=== PATIENT | male | born 1945 | race Caucasian/White ===

== ENCOUNTER → 2017-08-18 13:53 | Outpatient (CLI) | payer MEDICARE, OTHER, SELFPAY ==
[2017-08-18 14:52] LABS: Alanine Aminotransferase 43 IU/L (21-72); Albumin 4.3 g/dL (3.5-5.0); Albumin Globulin Ratio 1.3 (1.0-2.8); Alkaline Phosphatase 61 U/L (38-126); Aspartate Aminotransferase 33 IU/L (17-59); Bilirubin Total 1.1 mg/dL (0.2-1.3); Bilirubin Unconjugated 0.9 mg/dL (0.0-1.1); Cholesterol 105 mg/dL (140-199); Globulin 3.2 g/dL (1.7-4.1); HDL Cholesterol 27 mg/dL (40-60); HEMOLYSIS 24 (0-50); LDL Cholesterol Calculated 60 mg/dL (<100); Total Protein 7.5 g/dL (6.3-8.2); Triglycerides 90 mg/dL (35-150)
== END ==
PROVIDERS: PCP Physician Assistant; Visit Provider Internal Medicine
DX: E78.00 Pure hypercholesterolemia, unspecified (principal)
CPT/HCPCS: 36415; 80061; 80076

== ENCOUNTER → 2017-11-27 15:42 | Outpatient (CLI) | payer MEDICARE, OTHER, SELFPAY ==
[2017-08-26 16:00] VITALS: BMI 29.0; BMI 39.4
[2017-11-27 18:11] LABS: Alanine Aminotransferase 41 IU/L (21-72); Albumin 4.5 g/dL (3.5-5.0); Albumin Globulin Ratio 1.4 (1.0-2.8); Alkaline Phosphatase 72 U/L (38-126); Aspartate Aminotransferase 33 IU/L (17-59); BUN Creatinine Ratio 21.3 (6-22); Bilirubin Total 0.7 mg/dL (0.2-1.3); Blood Urea Nitrogen 17 mg/dL (9-20); Calcium 9.5 mg/dL (8.4-10.2); Carbon Dioxide 36 mmol/L (22-32); Chloride 99 mmol/L (98-107); Estimated Glomerular Filt Rate > 60.0 mL/min (>60); Globulin 3.3 g/dL (1.7-4.1); Glucose 92 mg/dL (80-110); HEMOLYSIS 19 (0-50); Sodium 145 mmol/L (137-145); Total Protein 7.8 g/dL (6.3-8.2)
== END ==
PROVIDERS: PCP Physician Assistant; Visit Provider Internal Medicine Cardiovascular Disease
DX: I25.10 Atherosclerotic heart disease of native coronary artery without angina pectoris (principal)
CPT/HCPCS: 36415; 80053

== ENCOUNTER → 2017-12-08 10:52 | Outpatient (CLI) | payer MEDICARE, OTHER, SELFPAY ==
[2017-08-26 16:00] VITALS: BMI 29.0; BMI 39.4
--- NOTE | 2017-12-08 | DI.CT.S_ITS ---
PROCEDURE: CT ANGIO CHEST INDICATIONS: PAROXYSMAL ATRIAL FIBRILLATION TECHNIQUE: After the administration of intravenous contrast, 3 mm thick sections acquired from the pulmonary apices to the posterior costophrenic angles. 3-dimensional maximum intensity projection (MIP) coronal reformats were then acquired parallel to the pulmonary veins. For radiation dose reduction, the following was used: automated exposure control, adjustment of mA and/or kV according to patient size. COMPARISON: [facility], CT, ABDOMEN WITHOUT CONTRAST, 03/30/2012, 8:27. [facility], CT, THORAX WITH CONTRAST, 05/10/2011, 13:15. FINDINGS: Image quality: Excellent. Pulmonary veins: 2 right and 2 left pulmonary veins are identified. * Right superior pulmonary vein: 3.1 cm diameter, 1.1 cm from ostium to 1st order branch. * Right inferior pulmonary vein: 2.3 cm diameter, 1.0 cm from ostium to 1st order branch. * Left superior pulmonary vein: 2.3 cm diameter, 3.1 cm from ostium to 1st order branch. * Left inferior pulmonary vein: 2.0 cm diameter, 2.2 cm from ostium to 1st order branch. * Supernumerary pulmonary veins: none. Lungs and pleura: Lungs are clear. No pleural effusions or pneumothorax. Central and peripheral airways are patent. There is chronic segmental bronchial wall thickening within the left lower lobe. Left lower lobe scarring is present. Scarring within the left upper lobe posterior laterally is present. Mediastinum: Heart size is enlarged, without pericardial effusion. There is calcification of the coronary vasculature. No mediastinal or hilar adenopathy. Thoracic aorta and pulmonary arteries are normal in caliber and enhancement. Esophagus is normal in caliber, without hiatal hernia. Bones and chest wall: Left-sided pacer with transvenous cardiac leads. No suspicious bony lesions. Ribs and thoracic spine appear intact throughout. No axillary or supraclavicular adenopathy. Thyroid gland is not seen. Abdomen: Visualized portions of the upper abdomen demonstrate a peripherally calcified cyst within the anterior spleen, which is incompletely visualized. There is reflux of contrast into the hepatic venous vasculature. IMPRESSION: 1. Conventional pulmonary venous anatomy. 2. Coronary artery disease. Right heart failure. 3. Peripherally calcified splenic cyst. 4. Chronic left lower lobe bronchitis with associated scarring. Dictated by: Tyrel Ledesma M.D. on 12/08/2017 at 12:16 Approved by: Tyrel Ledesma M.D. on 12/08/2017 at 12:24
== END ==
PROVIDERS: PCP Physician Assistant; Visit Provider Internal Medicine Cardiovascular Disease
DX: I48.0 Paroxysmal atrial fibrillation (principal); I25.10 Atherosclerotic heart disease of native coronary artery without angina pectoris; D73.4 Cyst of spleen; J42 Unspecified chronic bronchitis; I50.810 Right heart failure, unspecified
CPT/HCPCS: 71275; Q9967

== ENCOUNTER 2017-12-15 11:49 | Emergency (ER) | payer MEDICARE, OTHER, SELFPAY ==
[2017-08-26 16:00] VITALS: BMI 29.0; BMI 39.4
[2017-12-15 11:55] VITALS: BP 133/84; PULSE 59; RESP 16; TEMP 36.4; O2SAT 96
[2017-12-15 12:52] VITALS: BP 139/86; BP 159/94; PULSE 60; RESP 14; O2SAT 96
--- NOTE | 2017-12-15 12:59 | DI.CT.S_ITS ---
PROCEDURE: CT ANGIO CHEST ABDOMEN PELVIS INDICATIONS: epigastric pain with known aneurysm, stent TECHNIQUE: Precontrast 5 mm thick sections acquired from the lung apices to the iliac crests. After the administration of intravenous contrast, 2.5 mm thick sections again acquired from the lung apices to the iliac crests. Maximum intensity projection (MIP) oblique sagittal and coronal reformats were then acquired. For radiation dose reduction, the following was used: automated exposure control. COMPARISON: [facility], CT, ABDOMEN WITHOUT CONTRAST, 03/30/2012, 8:27. [facility], CT, CT ANGIO CHEST, 12/08/2017, 10:53. FINDINGS: Image quality: Excellent. AORTA: . Thoracic aorta demonstrates no aneurysmal dilation, stenosis or occlusion. Infrarenal distal aortic stent extending to the common iliacs are present. Stents appear patent. CHEST: Lungs and pleura: Streaky opacities are present within the left upper lobe, unchanged.i. No pleural effusions or pneumothorax. Central and peripheral airways are patent and normal in caliber. Mediastinum: Heart size is normal. No pericardial effusion. No mediastinal or hilar adenopathy by size criteria. Central pulmonary arteries are normal in size. Esophagus is normal in caliber. Mild hiatal hernia. Bones and chest wall: No axillary adenopathy by size criteria. Thyroid gland is unremarkable. No suspicious bony lesions. No vertebral body compression fractures. ABDOMEN: Vasculature: Celiac trunk and mesenteric arteries are patent. Renal arteries are also patent. Solid organs: Liver is normal in size and enhancement. Gallbladder is unremarkable. Biliary system is non dilated. Pancreas enhances normally. Spleen calcified anterior splenic low attenuation structure is present and unchanged. No adrenal nodules. Both kidneys are normal in size and enhancement, without hydronephrosis. Bilateral renal cysts are present. Peritoneum and bowel: No free fluid or air. Bowel loops are normal in caliber and wall thickness. Nodes and vessels: No retroperitoneal or mesenteric adenopathy by size criteria. Inferior vena cava is normal in morphology. Miscellaneous: No ventral hernias. PELVIS: Genitourinary: Bladder wall thickness is normal. Miscellaneous: No inguinal hernias or adenopathy. No ventral hernias. Bones: No suspicious bony lesions. No vertebral body compression fractures. IMPRESSION: 1. No visualized aortic aneurysmal dilation, stenosis or vascular occlusion. Aorto iliac stents are noted, as above. 2. Scarring within the left upper lobe is unchanged. Dictated by: Lara Lawrence M.D. on 12/15/2017 at 14:23 Approved by: Lara Lawrence M.D. on 12/15/2017 at 14:49
--- NOTE | 2017-12-15 12:59 | DI.US.S_ITS ---
PROCEDURE: US ABDOMEN COMPLETE INDICATIONS: PAIN TECHNIQUE: Real-time scanning was performed of the abdominal and retroperitoneal organs, with image documentation. COMPARISON: None. FINDINGS: Liver: The liver measures 20.7 cm in length and demonstrates increased echogenicity. Gallbladder: The gallbladder wall measures 2.9 mm in thickness. No stones, sludge, pericholecystic fluid, or sonographic Voss sign. Biliary ducts: Intrahepatic bile ducts are non-dilated. Extrahepatic bile duct caliber measures 4 mm. Normal is 6-7 mm or less in diameter, or 10 mm or less post-cholecystectomy. Pancreas: The pancreas is nonvisualized due to patient body habitus. Spleen: Spleen is normal in size and homogeneous in echotexture. Kidneys: Kidneys are normal in size and echotexture. Right kidney measures 12.6 cm long; left kidney measures 12.2 cm long. No hydronephrosis or nephrolithiasis. No solid masses. Aorta: Visualized aorta is normal in caliber at less than 3 cm. Iliacs: Proximal common iliac arteries are normal in caliber at less than 2.5 cm. IVC: Intrahepatic inferior vena cava is patent. Miscellaneous: No free abdominal fluid. IMPRESSION: 1. Increased hepatic echogenicity suggesting hepatic steatosis although other sources of hepatocellular dysfunction cannot be excluded. 2. No cholelithiasis or findings to suggest choledocholithiasis or acute cholecystitis. Dictated by: Regina Mccormick M.D. on 12/15/2017 at 13:36 Approved by: Regina Mccormick M.D. on 12/15/2017 at 13:38
[2017-12-15 13:03] LABS: Add Manual Diff / Slide Review NO; Basophils Percent Auto 0.8 % (0-2); Eosinophils Percent Auto 2.8 % (2-4); Hematocrit 44.8 % (41-53); Hemoglobin 15.1 g/dL (13.5-17.5); Lymphocytes Percent Auto 19.4 % (25-40); Mean Corpuscular HGB Conc 33.8 % (30-36); Mean Corpuscular Hemoglobin 32.3 PG (26-34); Mean Corpuscular Volume 95.6 fL (80-100); Monocytes Percent Auto 9.1 % (3-14); Neutrophils Absolute Auto 4800 /uL (3000-5900); Neutrophils Percent Auto 67.9 % (50-75); Platelet Count 173 X10^3/uL (150-400); Red Blood Cell Count 4.68 X10^6/uL (4.5-5.9); Red Cell Distribution Width 13.9 % (11.6-14.8)
[2017-12-15 13:09] LABS: INR 1.2 (0.9-1.3); Prothrombin Time 12.7 SECONDS (10.1-12.7)
[2017-12-15 13:12] LABS: PTT Partial Thromboplastin Tim 37 SECONDS (26.4-36.2)
[2017-12-15 13:14] LABS: Alanine Aminotransferase 29 IU/L (21-72); Albumin 4.5 g/dL (3.5-5.0); Albumin Globulin Ratio 1.3 (1.0-2.8); Alkaline Phosphatase 73 U/L (38-126); Aspartate Aminotransferase 24 IU/L (17-59); BUN Creatinine Ratio 13.8 (6-22); Blood Urea Nitrogen 11 mg/dL (9-20); Calcium 9.3 mg/dL (8.4-10.2); Carbon Dioxide 36 mmol/L (22-32); Chloride 98 mmol/L (98-107); Creatine Kinase 52 U/L (55-170); Estimated Glomerular Filt Rate > 60.0 mL/min (>60); Globulin 3.6 g/dL (1.7-4.1); Glucose 102 mg/dL (80-110); HEMOLYSIS < 15 (0-50); Lipase 452 U/L (23-300); Sodium 141 mmol/L (137-145); Total Protein 8.1 g/dL (6.3-8.2)
--- NOTE | 2017-12-15 13:26 | ED_ITS ---
HPI - Chest Pain General Chief Complaint: Chest Pain Stated Complaint: abdominal pain,up into back and shoulder blades Time Seen by Provider: 12/15/17 12:58 Source: patient Mode of arrival: ambulatory Limitations: no limitations History of Present Illness HPI narrative: Patient is a 72-year-old male who presents with epigastric pain. He has a history of an abdominal aortic aneurysm which was stented 3 years ago he also has multiple stents in his heart he is due to have cardiac ablation for AFib in 2 days he is currently on Pradaxa. He now has epigastric pain a radiates down his to his pelvis and then back up sometimes he feels nauseated is no vomiting no chest pain no shortness of breath her heart palpitations. Related Data Home Medications Medication Instructions Recorded Confirmed tiotropium bromide [Spiriva with 1 puff INH QDAY #0 ea 10/17/15 12/15/17 HandiHaler] aspirin 81 mg PO QDAY #0 12/19/15 12/15/17 sotalol [Sotalol AF] 80 mg PO BID #0 12/19/15 12/15/17 albuterol sulfate [Ventolin HFA] 1 puff INHALATION PRN PRN 12/15/17 12/15/17 atorvastatin 40 mg PO QPM 12/15/17 12/15/17 budesonide-formoterol [Symbicort] 1 puff INHALATION BID 12/15/17 12/15/17 dabigatran etexilate [Pradaxa] 1 cap PO BID 12/15/17 12/15/17 furosemide 40 mg PO DAILY 12/15/17 12/15/17 levothyroxine 1 tab PO DAILY 12/15/17 12/15/17 metoprolol tartrate 25 mg PO BID 12/15/17 12/15/17 montelukast 10 mg PO DAILY 12/15/17 12/15/17 omeprazole 20 mg PO QPM 12/15/17 12/15/17 Allergies Allergy/AdvReac Type Severity Reaction Status Date / Time hydromorphone [From DILAUDID] AdvReac Mild PROJECTILE Verified 12/15/17 14:30 VOMITING Review of Systems Review of Systems All systems reviewed & are unremarkable except as noted in HPI and below Constitutional Denies chills, Denies fever(s), Denies lethargy and Denies weakness Eyes Denies change in vision, Denies eye discharge, Denies irritation and Denies loss of vision Cardiovascular Reports as per HPI, Denies dyspnea and Denies dyspnea on exertion Respiratory Denies cough, Denies dyspnea, Denies dyspnea on exertion and Denies wheezing Gastrointestinal Gastrointestinal: Reports abdominal pain, Reports belching, Denies diarrhea, Denies nausea and Denies vomiting Musculoskeletal Denies back pain, Denies muscle weakness, Denies numbness and Denies tingling Integumentary/Breasts Denies pruritus, Denies erythema, Denies rash and Denies wounds Neurologic Denies loss of vision, Denies numbness, Denies tingling and Denies weakness Allergic/Immunologic Denies wheezing PFSH Medical History AAA (abdominal aortic aneurysm) without rupture (Acute) Atrial fibrillation (Acute) Coronary artery disease (Acute) Hyperlipidemia (Acute) Hypertension (Acute) Social History Smoking Status: Never smoker Tobacco: How many years used: 40 Exam Initial Vital Signs Initial Vital Signs: Vital Signs Temperature 97.6 F 12/15/17 11:55 Pulse Rate 59 L 12/15/17 11:55 Respiratory Rate 16 12/15/17 11:55 Blood Pressure 133/84 12/15/17 11:55 Pulse Oximetry 96 12/15/17 11:55 GENERAL: Alert talking elderly male no acute distress A&O x3 HEENT: Head atraumatic,EOMI, pupils reactive, face symmetric, CARDIOVASCULAR: Regular rate and rhythm without murmurs, rubs or gallops. RESPIRATORY: Breath sounds equal bilaterally, no wheezes rales or rhonchi. ABDOMEN: Soft, mild epigastric pain no guarding no rebound negative Voss sign , abdomen is soft nondistended EXTREMITIES: Normal range of motion, no clubbing or edema. Neurovascularly intact NEUROLOGICAL: Alert and oriented x4.Normal gait and speech. Cranial nerves II through XII grossly intact. SKIN: Warm, dry, no laceration, no petechiae, no rashes or lesions. Course Orders Ordered: ED Orders 12/15/17 12:59 CT angio chest abdomen pelvis Stat US abdomen complete Stat 12/15/17 13:00 Complete Blood Count AUTO DIFF Stat Comprehensive Metabolic Panel Stat Lipase Stat Partial Thromboplastin Time Stat Prothrombin Time INR Stat Troponin & CK Cardiac Panel Stat Discontinued Medications Pantoprazole Sodium (Protonix) 40 mg IV NOW ONE Stop: 12/15/17 14:18 Last Admin: 12/15/17 14:31 Dose: 40 mg Vital Signs - 8 hr 12/15/17 11:55 12/15/17 12:52 12/15/17 13:34 Temperature 97.6 F Pulse Rate 59 L 60 60 Respiratory Rate 16 14 12 Blood Pressure 133/84 Blood Pressure [Left Arm] 159/94 H Blood Pressure [Right Arm] 139/86 117/81 Pulse Oximetry 96 96 98 12/15/17 13:47 12/15/17 14:22 12/15/17 15:24 Temperature Pulse Rate 60 60 60 Respiratory Rate 14 9 L Blood Pressure Blood Pressure [Left Arm] Blood Pressure [Right Arm] 113/81 128/82 127/84 Pulse Oximetry 96 98 95 MDM - Chest Pain Lab Data Attestation: I reviewed the patient's lab results. Result diagrams: 12/15/17 13:00 12/15/17 13:00 Lab Results 12/15/17 12/15/17 12/15/17 Range/Units 13:00 13:00 13:00 WBC 7.0 (4.5-11.0) X10^3/uL RBC 4.68 (4.5-5.9) X10^6/uL Hgb 15.1 (13.5-17.5) g/dL Hct 44.8 (41-53) % MCV 95.6 (80-100) fL MCH 32.3 (26-34) PG MCHC 33.8 (30-36) % RDW 13.9 (11.6-14.8) % Plt Count 173 (150-400) X10^3/uL Neut % (Auto) 67.9 (50-75) % Lymph % (Auto) 19.4 L (25-40) % [place] % (Auto) 9.1 (3-14) % Eos % (Auto) 2.8 (2-4) % Baso % (Auto) 0.8 (0-2) % Neut # (Auto) 4800 (8821-2666) /uL PT 12.7 (10.1-12.7) SECONDS INR 1.2 (0.9-1.3) APTT 37 H (26.4-36.2) SECONDS Sodium 141 (137-145) mmol/L Potassium 4.0 (3.4-5.1) mmol/L Chloride 98 (98-107) mmol/L Carbon Dioxide 36 H (22-32) mmol/L BUN 11 (9-20) mg/dL Creatinine 0.80 (0.66-1.25) mg/dL Estimated GFR > 60.0 (>60) mL/min BUN/Creatinine Ratio 13.8 (6-22) Glucose 102 (80-110) mg/dL Calcium 9.3 (8.4-10.2) mg/dL Total Bilirubin 1.0 (0.2-1.3) mg/dL AST 24 (17-59) IU/L ALT 29 (21-72) IU/L Alkaline Phosphatase 73 (38-126) U/L Total Creatine Kinase 52 L (55-170) U/L CK-MB (CK-2) TNP CK-MB (CK-2) Rel Index TNP Troponin I < 0.012 (0.01-0.034) ng/mL Total Protein 8.1 (6.3-8.2) g/dL Albumin 4.5 (3.5-5.0) g/dL Globulin 3.6 (1.7-4.1) g/dL Albumin/Globulin Ratio 1.3 (1.0-2.8) Lipase 452 H (23-300) U/L Urine Dip Bedside Urine Glucose Negative Bedside Urine Bilirubin - Negative Bedside Urine Ketone - Negative Urine Specific [place] 1.010 Bedside Urine Occult Blood - Negative Bedside Urine pH 8.0 Bedside Urine Protein - Negative Bedside Urine Urobilinogen - Negative Bedside Urine Nitrite - Negative Bedside Urine Leukocytes - Negative Esterase Imaging Data US - abdomen: Radiologist's impression: PROCEDURE: US ABDOMEN COMPLETE INDICATIONS: PAIN TECHNIQUE: Real-time scanning was performed of the abdominal and retroperitoneal organs, with image documentation. COMPARISON: None. FINDINGS: Liver: The liver measures 20.7 cm in length and demonstrates increased echogenicity. Gallbladder: The gallbladder wall measures 2.9 mm in thickness. No stones, sludge, pericholecystic fluid, or sonographic Voss sign. Biliary ducts: Intrahepatic bile ducts are non-dilated. Extrahepatic bile duct caliber measures 4 mm. Normal is 6-7 mm or less in diameter, or 10 mm or less post-cholecystectomy. Pancreas: The pancreas is nonvisualized due to patient body habitus. Spleen: Spleen is normal in size and homogeneous in echotexture. Kidneys: Kidneys are normal in size and echotexture. Right kidney measures 12.6 cm long; left kidney measures 12.2 cm long. No hydronephrosis or nephrolithiasis. No solid masses. Aorta: Visualized aorta is normal in caliber at less than 3 cm. Iliacs: Proximal common iliac arteries are normal in caliber at less than 2.5 cm. IVC: Intrahepatic inferior vena cava is patent. Miscellaneous: No free abdominal fluid. IMPRESSION: 1. Increased hepatic echogenicity suggesting hepatic steatosis although other sources of hepatocellular dysfunction cannot be excluded. 2. No cholelithiasis or findings to suggest choledocholithiasis or acute cholecystitis. Dictated by: Regina Mccormick M.D. on 12/15/2017 at 13:36 CT angio chest abdomen pelvis: Radiologist's impression: PROCEDURE: CT ANGIO CHEST ABDOMEN PELVIS INDICATIONS: epigastric pain with known aneurysm, stent TECHNIQUE: Precontrast 5 mm thick sections acquired from the lung apices to the iliac crests. After the administration of intravenous contrast, 2.5 mm thick sections again acquired from the lung apices to the iliac crests. Maximum intensity projection (MIP) oblique sagittal and coronal reformats were then acquired. For radiation dose reduction, the following was used: automated exposure control. COMPARISON: [facility], CT, ABDOMEN WITHOUT CONTRAST, 03/30/2012, 8:27. [facility], CT, CT ANGIO CHEST, 12/08/2017, 10:53. FINDINGS: Image quality: Excellent. AORTA: . Thoracic aorta demonstrates no aneurysmal dilation, stenosis or occlusion. Infrarenal distal aortic stent extending to the common iliacs are present. Stents appear patent. CHEST: Lungs and pleura: Streaky opacities are present within the left upper lobe, unchanged.i. No pleural effusions or pneumothorax. Central and peripheral airways are patent and normal in caliber. Mediastinum: Heart size is normal. No pericardial effusion. No mediastinal or hilar adenopathy by size criteria. Central pulmonary arteries are normal in size. Esophagus is normal in caliber. Mild hiatal hernia. Bones and chest wall: No axillary adenopathy by size criteria. Thyroid gland is unremarkable. No suspicious bony lesions. No vertebral body compression fractures. ABDOMEN: Vasculature: Celiac trunk and mesenteric arteries are patent. Renal arteries are also patent. Solid organs: Liver is normal in size and enhancement. Gallbladder is unremarkable. Biliary system is non dilated. Pancreas enhances normally. Spleen calcified anterior splenic low attenuation structure is present and unchanged. No adrenal nodules. Both kidneys are normal in size and enhancement, without hydronephrosis. Bilateral renal cysts are present. Peritoneum and bowel: No free fluid or air. Bowel loops are normal in caliber and wall thickness. Nodes and vessels: No retroperitoneal or mesenteric adenopathy by size criteria. Inferior vena cava is normal in morphology. Miscellaneous: No ventral hernias. PELVIS: Genitourinary: Bladder wall thickness is normal. Miscellaneous: No inguinal hernias or adenopathy. No ventral hernias. Bones: No suspicious bony lesions. No vertebral body compression fractures. IMPRESSION: 1. No visualized aortic aneurysmal dilation, stenosis or vascular occlusion. Aorto iliac stents are noted, as above. 2. Scarring within the left upper lobe is unchanged. Dictated by: Lara Lawrence M.D. on 12/15/2017 at 14:23 Approved by: Lara Lawrence M.D. on 12/15/2017 at 14:49 [facility] Narrative Medical decision making narrative: Patient overall is feeling better. Ultrasound and CT are within normal limits. He does have a slight elevation in lipase of 452, this may be contributing to his pain and discomfort. He is able tolerate oral fluids. He is given a dose of Protonix as well for chronic kind of gastritis. He takes Protonix 20 mg at night. At this time patient is feeling ready and able to go home. Discharge Plan Departure Patient Disposition: Home Clinical Impression: Abdominal pain Discharge Date/Time: 12/15/17 15:36 Interventions: ED Discharge Assessment Last Done: 12/15/17 15:35 Instructions: DI for Abdominal Pain-Adult Activity Restrictions/Additional Instructions: *You have been diagnosed with abdominal pain *What to do: Blood work does show slightly elevated lipase of 452. This may be contributing to some of her pain and discomfort as though it is not concerning at this time. He had an ultrasound of her gallbladder which was negative and a CT scan of you're aorto which is also negative. Recommend drinking of fluids and water and avoiding alcohol *Continue to take medications as directed Omeprazole 40 mg in the evening before bed on an empty stomach *Follow up with your primary care provider in 2-3 days *Return to ER if you should have increased pain persistent vomiting chest pain lightheadedness passing out or any new, worsening or concerning symptoms Prescriptions: No Action tiotropium bromide [Spiriva with HandiHaler] 18 MCG capsule, w/inhalation device 1 puff INH QDAY Qty: 0 RF: 0 aspirin 81 MG tablet,delayed release (DR/EC) 81 mg PO QDAY Qty: 0 RF: 0 sotalol [Sotalol AF] 80 MG tablet 80 mg PO BID Qty: 0 RF: 0 atorvastatin 40 mg tablet 40 mg PO QPM RF: 0 levothyroxine 175 mcg tablet 1 tab PO DAILY RF: 0 furosemide 80 mg tablet 40 mg PO DAILY RF: 0 albuterol sulfate [Ventolin HFA] 90 mcg/actuation HFA aerosol inhaler 1 puff Inhalation PRN PRN (Reason: Shortness Of Breath) RF: 0 dabigatran etexilate [Pradaxa] 150 mg capsule 1 cap PO BID RF: 0 omeprazole 20 mg Capsule,Delayed Release(Dr/Ec) 20 mg PO QPM RF: 0 montelukast 10 mg tablet 10 mg PO DAILY RF: 0 metoprolol tartrate 25 mg Tablet 25 mg PO BID RF: 0 budesonide-formoterol [Symbicort] 160-4.5 mcg/actuation HFA aerosol inhaler 1 puff Inhalation BID RF: 0 Referrals: Bill Lopez MD [Non-Staff] - Trish Hall MD [Physician] - Carmen Frazier PA-C [Primary Care Provider] -
[2017-12-15 13:34] VITALS: BP 117/81; PULSE 60; RESP 12; O2SAT 98
[2017-12-15 13:36] LABS: Troponin I < 0.012 ng/mL (0.01-0.034)
[2017-12-15 13:47] VITALS: BP 113/81; PULSE 60; RESP 14; O2SAT 96
[2017-12-15 14:22] VITALS: BP 128/82; PULSE 60; RESP 9; O2SAT 98
[2017-12-15] MEDS: PANTOPRAZOLE 40 MG VIAL IV (14:31)
[2017-12-15 15:24] VITALS: BP 127/84; PULSE 60; O2SAT 95
--- NOTE | 2017-12-18 17:05 | PC.NURSE ---
follow up call, pt feeling much better, no questions, no improvement needed. pt very pleased with service
== END 2017-12-15 15:36 | disposition home or self-care (01) ==
PROVIDERS: Emergency Provider Emergency Medicine; PCP Physician Assistant
DX: R10.9 Unspecified abdominal pain (principal)
CPT/HCPCS: 36591; 71275; 74174; 76700; 80053; 81003; 82550; 83690; 84484; 85025; 85610; 85730; 93005; 96374; 99283; 99285; C9113; Q9967

== ENCOUNTER → 2018-05-07 15:07 | Outpatient (CLI) | payer MEDICARE, OTHER, SELFPAY ==
[2017-08-26 16:00] VITALS: BMI 29.0; BMI 39.4
[2018-05-07 16:24] LABS: Thyroid Stimulating Hormone 1.84 uIU/mL (0.47-4.68)
== END ==
PROVIDERS: PCP Physician Assistant; Visit Provider Physician Assistant
DX: E03.9 Hypothyroidism, unspecified (principal)
CPT/HCPCS: 36415; 84443

== ENCOUNTER → 2019-03-09 09:38 | Outpatient (CLI) | payer MEDICARE, OTHER, SELFPAY ==
[2017-08-26 16:00] VITALS: BMI 29.0; BMI 39.4
--- NOTE | 2019-03-09 | DI.RAD.S_ITS ---
PROCEDURE: XR FOOT LT MIN 3V INDICATIONS: Pain in left toe(s) TECHNIQUE: Free views of the foot were acquired. COMPARISON: None. FINDINGS: Bones: No fractures or dislocations. No suspicious bony lesions. Calcaneal spurring. Soft tissues: No tibiotalar joint effusion. Achilles tendon appears normal. IMPRESSION: No acute osseous abnormalities. If clinical symptoms persist or clinical suspicion for pathology is high, advanced imaging such as CT or MRI is suggested for further evaluation. Dictated by: Alexandra Turner M.D. on 03/09/2019 at 17:26 Approved by: Alexandra Turner M.D. on 03/09/2019 at 17:29
== END ==
PROVIDERS: PCP Physician Assistant; Visit Provider Physician Assistant
DX: M79.675 Pain in left toe(s) (principal)
CPT/HCPCS: 73630

== ENCOUNTER → 2019-11-09 14:13 | Outpatient (CLI) | payer MEDICARE, OTHER, SELFPAY ==
[2017-08-26 16:00] VITALS: BMI 29.0; BMI 39.4
[2019-11-09 16:00] LABS: BUN Creatinine Ratio 18.8 (6-22); Blood Urea Nitrogen 16 mg/dL (9-20); Calcium 9.3 mg/dL (8.4-10.2); Carbon Dioxide 38 mmol/L (22-32); Chloride 95 mmol/L (98-107); Estimated Glomerular Filt Rate > 60.0 mL/min (>60); Glucose 129 mg/dL (80-110); HEMOLYSIS < 15 (0-50); Potassium 3.7 mmol/L (3.4-5.1); Sodium 141 mmol/L (137-145)
[2019-11-09 16:29] LABS: TSH w/ Reflex to FT4 1.66 uIU/mL (0.47-4.68)
== END ==
PROVIDERS: PCP Physician Assistant; Referring Provider Internal Medicine; Visit Provider Internal Medicine
DX: I48.0 Paroxysmal atrial fibrillation (principal)
CPT/HCPCS: 36415; 80048; 83735; 84443

== ENCOUNTER → 2020-08-08 11:37 | Outpatient (CLI) | payer MEDICARE, OTHER, SELFPAY ==
[2017-08-26 16:00] VITALS: BMI 29.0; BMI 39.4
[2020-08-08 12:13] LABS: COVID19 -Nasal RAPID Negative (Negative)
== END ==
PROVIDERS: PCP Physician Assistant; Visit Provider Family Medicine Sleep Medicine
DX: Z20.822 Contact with and (suspected) exposure to COVID-19 (principal); G47.33 Obstructive sleep apnea (adult) (pediatric); G47.30 Sleep apnea, unspecified
CPT/HCPCS: 87635; 95810

== ENCOUNTER 2020-12-18 22:16 | Observation (INO) | payer MEDICARE, OTHER, SELFPAY ==
[2017-08-26 16:00] VITALS: BMI 29.0; BMI 39.4
--- NOTE | 2020-12-18 22:17 | ED.BACK ---
HPI - Back Pain/Injury General Chief Complaint: Back Pain/Injury Stated Complaint: Back Pain Time Seen by Provider: 12/18/20 22:17 History of Present Illness HPI Narrative: 75-year-old male nonsmoker with history of hypertension and hyperlipidemia is on Pradaxa and presents by EMS for evaluation of severe lower back pain and spasming that started in the absence of any traumatic injury earlier in the day. He states that it seemed to be set off by him bending over and picking up a heavy object in which he felt pulling in his back and has some occasion that radiates to the right a bit. He denies, however any radiation to his hips or lower extremities. He denies any numbness, tingling or weakness. He denies any loss of control of bowel or bladder. He denies any longstanding history of back issues. He was given Versed 2 mg EN route which helped briefly but it started wearing off soon after his arrival Related Data Home Medications Medication Instructions Recorded Confirmed tiotropium bromide 18 mcg capsule 1 puff INH QDAY #0 ea 10/17/15 12/19/20 with inhalation device (Spiriva with HandiHaler) aspirin 81 mg tablet,delayed 81 mg PO QDAY #0 12/19/15 12/19/20 release albuterol sulfate 90 mcg/actuation 1 puff INHALATION PRN PRN 12/15/17 12/19/20 aerosol inhaler atorvastatin 40 mg tablet 40 mg PO QPM 12/15/17 12/19/20 levothyroxine 175 mcg tablet 1 tab PO DAILY 12/15/17 12/19/20 montelukast 10 mg tablet 10 mg PO DAILY 12/15/17 12/19/20 budesonide-formoterol HFA 160 2 puff INHALATION BID 06/21/20 12/19/20 mcg-4.5 mcg/actuation aerosol inhaler (Symbicort) dabigatran etexilate 150 mg 150 mg PO BID 06/21/20 12/19/20 capsule (Pradaxa) dofetilide 250 mcg capsule 250 mcg PO BID cap 06/21/20 12/19/20 furosemide 80 mg tablet 80 mg PO DAILY tab 06/21/20 12/19/20 lisinopril 5 mg tablet 5 mg PO DAILY 06/21/20 12/19/20 metoprolol tartrate 25 mg tablet 50 mg PO BID tab 06/21/20 12/19/20 Previous Rx's Medication Instructions Recorded oxycodone 5 mg tablet 5 mg PO Q6HR PRN #15 tab 12/19/20 prednisone 20 mg tablet 40 mg PO DAILY #5 tab 12/19/20 Allergies Allergy/AdvReac Type Severity Reaction Status Date / Time hydromorphone [From DILAUDID] AdvReac Mild PROJECTILE Verified 06/21/20 14:09 VOMITING Review of Systems Review of Systems Narrative: GENERAL: See HPI HEENT: Denies sinus pain, ear pain, sore throat, difficulty swallowing, dizziness. RESPIRATORY: Denies dyspnea, cough, wheezing, hemoptysis, sputum. CARDIOVASCULAR: Denies chest pain, palpitations, orthopnea, edema, GASTROINTESTINAL: Denies nausea, vomiting, abdominal pain, diarrhea, constipation, melena. : Denies dysuria, frequency, incontinence, hematuria, urinary retention. MUSCULOSKELETAL: See HPI SKIN: Denies rash, skin lesions, or other NEUROLOGIC: See HP PSYCHIATRIC: No concerning psychosocial issues. 12 point review of systems is negative except for those stated above Patient History Medical History AAA (abdominal aortic aneurysm) without rupture Atrial fibrillation Coronary artery disease Hyperlipidemia Hypertension Family History Father Loud snoring Diabetes mellitus Social History household members: spouse Smoking Status: Former smoker Tobacco: How many years used: 40 alcohol intake: current Smoking Status: Never smoker Substance Use Type: does not use Exam Narrative Exam Narrative: GENERAL: [75 year old patient appears stated age. Well-developed patient, in moderate distress, obviously uncomfortable HEAD: Atraumatic. Normocephalic. EYES: Pupils equal round and reactive. Extraocular motions intact. No scleral icterus. No injection or drainage. ENT: Nose without bleeding, purulent drainage. Throat without erythema, tonsillar hypertrophy or exudate. Airway patent. NECK: Trachea midline. Non tender CARDIOVASCULAR: Regular rate and rhythm without murmurs, gallops, or rubs. RESPIRATORY: Clear to auscultation. Breath sounds equal bilaterally. No wheezes, rales, or rhonchi. GASTROINTESTINAL: Abdomen soft, non-tender, nondistended. EXTREMITIES: No edema or joint tenderness. BACK: Tenderness to palpation in the mid lumbar and right paraspinal region NEURO: AOx3. No saddle anesthesia, no loss of sensation in lower extremities, bilateral patellar reflexes 1+. Bilateral lower extremity muscle strength 5/5. SKIN: No rash or erythema of visible areas Initial Vital Signs Initial Vital Signs: Vital Signs Pulse Rate 60 12/18/20 22:19 Blood Pressure 138/72 12/18/20 22:19 Pulse Oximetry 93 12/18/20 22:19 Course Orders Ordered: Discontinued Medications Acetaminophen (Acetaminophen 325 Mg Tablet) 650 mg PO Q6HR PRN PRN Reason: Fever/Mild Pain (1-3) Last Admin: 12/19/20 17:50 Dose: 650 mg Documented by: NAYELY Albuterol (Albuterol 2.5 Mg/3 Ml Neb (Adult)) 2.5 mg INH [id number] PRN PRN Reason: Shortness Of Breath Albuterol (Albuterol 2.5 Mg/3 Ml Neb (Adult)) 2.5 mg INH Q2H PRN PRN Reason: Shortness Of Breath Albuterol/Ipratropium (Albuterol/Ipratropium 3 Ml Ampul) 3 ml INH [id number] [facility] Last Admin: 12/19/20 16:37 Dose: 3 ml Documented by: Admin: 12/19/20 13:00 Dose: 3 ml Documented by: Admin: 12/19/20 09:36 Dose: 3 ml Documented by: IFRAH Atorvastatin Calcium (Atorvastatin 20 Mg Tablet) 40 mg PO QPM [facility] Last Admin: 12/19/20 17:10 Dose: 40 mg Documented by: NAYELY Bisacodyl (Bisacodyl 10 Mg Supp) 10 mg [place] DAILY PRN PRN Reason: Constipation Budesonide (Budesonide 0.5 Mg/2 Ml Neb) 0.5 mg INH RTBID [facility] Last Admin: 12/19/20 09:36 Dose: 0.5 mg Documented by: IFRAH Dexamethasone (Dexamethasone 10 Mg/Ml Vial) 10 mg IV NOW ONE Stop: 12/19/20 00:57 Last Admin: 12/19/20 01:10 Dose: 10 mg Documented by: NAWAF Docusate Sodium (Docusate 100 Mg Capsule) 100 mg PO BID [facility] Last Admin: 12/19/20 08:57 Dose: 100 mg Documented by: JOSE Fentanyl (Fentanyl 100 Mcg/2 Ml Inj) 50 mcg IV NOW ONE Stop: 12/18/20 23:30 Last Admin: 12/18/20 23:41 Dose: 50 mcg Documented by: NAWAF Furosemide (Furosemide 40 Mg Tablet) 80 mg PO DAILY [facility] Last Admin: 12/19/20 08:56 Dose: 80 mg Documented by: JOSE Hydromorphone HCl (Hydromorphone 0.5 Mg Inj) 0.5 mg IV NOW ONE Stop: 12/18/20 23:10 Last Admin: 12/18/20 23:38 Dose: Not Given Documented by: SARINA Hydromorphone HCl (Hydromorphone 0.5 Mg Inj) 0.5 mg IV Q6H PRN PRN Reason: Pain, Moderate (4-6) Lidocaine HCl 9.9 ml/ Sodium (Chloride) 59.9 mls @ 359.4 mls/hr IV NOW ONE Stop: 12/18/20 23:30 Last Infusion: 12/18/20 23:55 Dose: 0 mls/hr Documented by: Admin: 12/18/20 23:41 Dose: 359.4 mls/hr Documented by: NAWAF Ibuprofen (Ibuprofen 600 Mg Tablet) 600 mg PO Q6HR PRN PRN Reason: Fever/Mild Pain (1-3) Last Admin: 12/19/20 12:26 Dose: 600 mg Documented by: JOSE Influenza Virus Vaccine (Influenza Hd Vaccine 0.7 Ml Syringe) 0.7 ml IM .ONCE ONE Stop: 12/19/20 09:01 Last Admin: 12/19/20 09:11 Dose: 0.7 ml Documented by: JOSE Ipratropium [place] (Ipratropium 0.5 Mg/2.5 Ml Neb) 0.5 mg INH Q2H PRN PRN Reason: Shortness Of Breath Ketorolac Tromethamine (Ketorolac 30 Mg/Ml Vial) 15 mg IV NOW ONE Stop: 12/19/20 00:57 Last Admin: 12/19/20 01:09 Dose: 15 mg Documented by: NAWAF Levothyroxine Sodium (Levothyroxine 100 Mcg Tablet) 100 mcg PO 0600 [facility] Levothyroxine Sodium (Levothyroxine 75 Mcg Tablet) 75 mcg PO 0600 [facility] Lisinopril (Lisinopril 5 Mg Tablet) 5 mg PO DAILY [facility] Last Admin: 12/19/20 08:53 Dose: 5 mg Documented by: JOSE Lorazepam (Lorazepam 2 Mg/Ml Inj) 0.5 mg IV NOW ONE Stop: 12/19/20 00:57 Last Admin: 12/19/20 03:39 Dose: 0.5 mg Documented by: NAWAF Metoprolol Tartrate (Metoprolol Ir 25 Mg Tablet) 50 mg PO BID [facility] Last Admin: 12/19/20 08:56 Dose: 50 mg Documented by: JOSE Naloxone HCl (Naloxone 0.4 Mg/Ml Vial) 0.2 mg IV Q2MIN PRN PRN Reason: Opiate Reversal Nf - Dofetilide 250 (Mcg Capsule) 250 mcg PO BID [facility] Last Admin: 12/19/20 17:12 Dose: 250 mcg Documented by: Admin: 12/19/20 08:57 Dose: Not Given Documented by: JOSE Ondansetron HCl (Ondansetron 4 Mg/2 Ml Inj) 4 mg IV NOW ONE Stop: 12/18/20 23:10 Last Admin: 12/19/20 09:46 Dose: Not Given Documented by: JOSE Oxycodone HCl (Oxycodone Ir 5 Mg Tablet) 5 mg PO Q6HR PRN PRN Reason: Pain, Moderate (4-6) Last Admin: 12/19/20 14:22 Dose: 5 mg Documented by: JOSE Prednisone (Prednisone 20 Mg Tablet) 60 mg PO DAILY [facility] Last Admin: 12/19/20 08:56 Dose: 60 mg Documented by: JOSE Sennosides (Sennosides 8.6 Mg Tablet) 17.2 mg PO BEDTIME [facility] Vital Signs Vital signs: Vital Signs - 8 hr 12/18/20 23:30 12/19/20 00:00 12/19/20 00:30 Pulse Rate 65 69 69 Respiratory Rate 10 L 11 L Pulse Oximetry 92 91 12/19/20 01:00 12/19/20 01:30 12/19/20 03:00 Pulse Rate 61 61 60 Respiratory Rate 10 L 10 L 18 Pulse Oximetry 91 91 94 MDM - Back Pain/Injury Lab Data Result diagrams: 12/18/20 23:15 10/11/21 23:15 Labs: Lab Results 12/18/20 12/18/20 12/18/20 Range/Units 23:15 23:15 23:15 WBC 8.7 (4.5-11.0) X10^3/uL RBC 4.12 L (4.5-5.9) X10^6/uL Hgb 13.5 (13.5-17.5) g/dL Hct 40.1 L (41-53) % MCV 97.2 (80-100) fL MCH 32.8 (26-34) PG MCHC 33.7 (30-36) % RDW 13.3 (11.6-14.8) % Plt Count 180 (150-400) X10^3/uL Neut % (Auto) 70.3 (50-75) % Lymph % (Auto) 18.0 L (25-40) % [place] % (Auto) 9.0 (3-14) % Eos % (Auto) 2.2 (2-4) % Baso % (Auto) 0.5 (0-2) % Neut # (Auto) 6100 (7056-0333) /uL Lymph # (Auto) 1600 (2335-0417) /uL [place] # (Auto) 800 (0-900) /uL Eos # (Auto) 200 (0-450) /uL Baso # (Auto) 0 (0-100) /uL ESR 29 H (0-15) MM/HR PT 12.9 H (10.1-12.7) SECONDS INR 1.2 (0.9-1.3) Sodium 141 (137-145) mmol/L Potassium 4.9 (3.4-5.1) mmol/L Chloride 98 (98-107) mmol/L Carbon Dioxide 38 H (22-32) mmol/L BUN 18 (9-20) mg/dL Creatinine 0.85 (0.66-1.25) mg/dL Estimated GFR > 60.0 (>60) mL/min BUN/Creatinine Ratio 21.2 (6-22) Glucose 117 H (80-110) mg/dL Calcium 9.5 (8.4-10.2) mg/dL Total Bilirubin 0.5 (0.2-1.3) mg/dL AST 30 (17-59) IU/L ALT 23 (<50) IU/L Alkaline Phosphatase 62 (38-126) U/L C-Reactive Protein 0.7 (<1.0) mg/dL Total Protein 8.0 (6.3-8.2) g/dL Albumin 4.6 (3.5-5.0) g/dL Globulin 3.4 (1.7-4.1) g/dL Albumin/Globulin Ratio 1.4 (1.0-2.8) Lipase 69 (23-300) U/L Imaging Data CT scan - abdomen/pelvis: Radiologist's Impression: [address] [address] [address] Scan Report Signed Patient: Liborio Velásquez MR#: [id number] : 1945 Acct:[id number] Age/Sex: 75 / M Date of Service: 12/18/20 Loc: ED Accession Number: [id number] ?? Procedure: CT abdomen pelvis w con Ordering Provider: Clint Fish D.O. PROCEDURE:? CT ABDOMEN PELVIS W CON ? INDICATIONS:? severe low back and right flank pain, no injury, pradaxa ? TECHNIQUE:? After the administration of intravenous contrast, axial sections acquired from the lung bases to the pubic symphysis.? Coronal and sagittal reformats were performed.? For radiation dose reduction, the following was used:? automated exposure control, adjustment of mA and/or kV according to patient size.? ? COMPARISON:? [facility], CT, ABDOMEN/PELVIS WITH CONTRAST, 06/04/2011, 13:27. ? FINDINGS: ABDOMEN:? Lung bases:? Scattered subsegmental atelectasis and/or scarring. No focal consolidation.? Airway thickening in keeping with nonspecific bronchitis and/or reactive airways disease. ? Heart:? No pericardial effusion. Normal in size.? ? Liver: Subcentimeter hepatic foci are statistically cysts or hemangiomas, although technically too small to characterize accurately and therefore nonspecific. Gallbladder:? Unremarkable. Bile ducts: Normal. Pancreas: Normal.? Spleen:? Rim calcified 3.0 cm lesion in the anterior tip of the spleen, technically nonspecific. Adrenals: Normal. Kidneys and Ureters:? Bilateral simple appearing renal cysts.? No hydronephrosis.. Stomach and duodenum: Normal. Bowel:? Normal appearance of the appendix.? No evidence of bowel obstruction.? There is a large amount of stool. Other:? No free fluid or air.? No retroperitoneal hemorrhage Abdominal nodes:? Normal. Aorta and IVC:? 4.3 cm distal aortic aneurysm, status post placement of aorta bi-iliac stent graft. Ventral wall:? Fat containing periumbilical hernia. ? PELVIS:? ? Bladder: Normal.? Inguinal region: No hernia.? Pelvic nodes: Normal.? ? Bones:? No suspicious bony lesions.? No vertebral body compression fractures.? Spondylitic changes and facet arthropathy. ? ? IMPRESSION:? Overall, no acute findings as above. ? Distal abdominal aortic aneurysm, status post placement of stent graft as above. ? Additional chronic and incidental findings as above.? Dictated by: Jony Rinaldi M.D. on 12/19/2020 at 0:31 ? ? Approved by: Jony Rinaldi M.D. on 12/19/2020 at 0:40 ? MDM Narrative Medical decision making narrative: Patient with severe right lower back pain with radiation around his right side after lifting. He has no numbness, tingling or weakness nor any other red flag suggesting the presence of a neurosurgical emergency. He has had no loss of control of bowel or bladder. He did feel some temporary relief after the paramedics gave him some Versed. He had been given multiple doses of various medications in the department and we thought we were doing a decent job. We attempted an ambulation trial in preparation for discharge in the moment he stood and put weight on the walker his pain became severe and he had to lay back down. Other diagnoses including retroperitoneal hematoma given his use of anticoagulants considered including kidney stone, as well as AAA. Images are very reassuring. Discharge Plan Departure Patient Disposition: Admitted as Observation Clinical Impression: Intractable low back pain Admit Date/Time: 12/19/20 04:59 Admit Provider: Meek Cunningham
[2020-12-18 22:19] VITALS: BP 138/72; PULSE 60; O2SAT 93
[2020-12-18 22:26] VITALS: BP 138/72; PULSE 66; RESP 18; TEMP 36.6; O2SAT 96; BMI 36.2
[2020-12-18 22:30] VITALS: PULSE 60; O2SAT 93
[2020-12-18 23:00] VITALS: PULSE 61; O2SAT 92
--- NOTE | 2020-12-18 23:12 | DI.CT.S_ITS ---
PROCEDURE: CT ABDOMEN PELVIS W CON INDICATIONS: severe low back and right flank pain, no injury, pradaxa TECHNIQUE: After the administration of intravenous contrast, axial sections acquired from the lung bases to the pubic symphysis. Coronal and sagittal reformats were performed. For radiation dose reduction, the following was used: automated exposure control, adjustment of mA and/or kV according to patient size. COMPARISON: [facility], CT, ABDOMEN/PELVIS WITH CONTRAST, 06/04/2011, 13:27. FINDINGS: ABDOMEN: Lung bases: Scattered subsegmental atelectasis and/or scarring. No focal consolidation. Airway thickening in keeping with nonspecific bronchitis and/or reactive airways disease. Heart: No pericardial effusion. Normal in size. Liver: Subcentimeter hepatic foci are statistically cysts or hemangiomas, although technically too small to characterize accurately and therefore nonspecific. Gallbladder: Unremarkable. Bile ducts: Normal. Pancreas: Normal. Spleen: Rim calcified 3.0 cm lesion in the anterior tip of the spleen, technically nonspecific. Adrenals: Normal. Kidneys and Ureters: Bilateral simple appearing renal cysts. No hydronephrosis.. Stomach and duodenum: Normal. Bowel: Normal appearance of the appendix. No evidence of bowel obstruction. There is a large amount of stool. Other: No free fluid or air. No retroperitoneal hemorrhage Abdominal nodes: Normal. Aorta and IVC: 4.3 cm distal aortic aneurysm, status post placement of aorta bi-iliac stent graft. Ventral wall: Fat containing periumbilical hernia. PELVIS: Bladder: Normal. Inguinal region: No hernia. Pelvic nodes: Normal. Bones: No suspicious bony lesions. No vertebral body compression fractures. Spondylitic changes and facet arthropathy. IMPRESSION: Overall, no acute findings as above. Distal abdominal aortic aneurysm, status post placement of stent graft as above. Additional chronic and incidental findings as above. Dictated by: Jony Rinaldi M.D. on 12/19/2020 at 0:31 Approved by: Jony Rinaldi M.D. on 12/19/2020 at 0:40
[2020-12-18 23:27] LABS: Add Manual Diff / Slide Review NO; Basophils Absolute Auto 0 /uL (0-100); Basophils Percent Auto 0.5 % (0-2); Eosinophils Absolute Auto 200 /uL (0-450); Eosinophils Percent Auto 2.2 % (2-4); Hematocrit 40.1 % (41-53); Hemoglobin 13.5 g/dL (13.5-17.5); Lymphocytes Absolute Auto 1600 /uL (1100-4500); Mean Corpuscular HGB Conc 33.7 % (30-36); Mean Corpuscular Hemoglobin 32.8 PG (26-34); Mean Corpuscular Volume 97.2 fL (80-100); Monocytes Absolute Auto 800 /uL (0-900); Neutrophils Absolute Auto 6100 /uL (1500-7000); Neutrophils Percent Auto 70.3 % (50-75); Platelet Count 180 X10^3/uL (150-400); Red Blood Cell Count 4.12 X10^6/uL (4.5-5.9); Red Cell Distribution Width 13.3 % (11.6-14.8); White Blood Cell Count 8.7 X10^3/uL (4.5-11.0)
[2020-12-18 23:30] VITALS: PULSE 65; O2SAT 92
[2020-12-18 23:32] LABS: INR 1.2 (0.9-1.3); Prothrombin Time 12.9 SECONDS (10.1-12.7)
[2020-12-18 23:39] LABS: Alanine Aminotransferase 23 IU/L (<50); Albumin 4.6 g/dL (3.5-5.0); Albumin Globulin Ratio 1.4 (1.0-2.8); Alkaline Phosphatase 62 U/L (38-126); Aspartate Aminotransferase 30 IU/L (17-59); BUN Creatinine Ratio 21.2 (6-22); Bilirubin Total 0.5 mg/dL (0.2-1.3); Blood Urea Nitrogen 18 mg/dL (9-20); C-Reactive Protein Quant 0.7 mg/dL (<1.0); Calcium 9.5 mg/dL (8.4-10.2); Carbon Dioxide 38 mmol/L (22-32); Chloride 98 mmol/L (98-107); Estimated Glomerular Filt Rate > 60.0 mL/min (>60); Globulin 3.4 g/dL (1.7-4.1); Glucose 117 mg/dL (80-110); HEMOLYSIS 30 (0-50); Lipase 69 U/L (23-300); Potassium 4.9 mmol/L (3.4-5.1); Sodium 141 mmol/L (137-145)
[2020-12-18] MEDS: fentaNYL 100 MCG/2 ML INJ 50 MCG IV (23:41)
[2020-12-18] MEDS: SODIUM CHLORIDE 0.9% IV (23:41)
[2020-12-18] MEDS: LIDOCAINE 2% IV (23:41)
[2020-12-19] VITALS (17 sets, daily range): BP systolic 118–139; BP diastolic 61–79; PULSE 60–80; RESP 10–21; TEMP 35.9–36.6; O2SAT 91–97; BMI 38.1
[2020-12-19 00:01] LABS: Erythrocyte Sedimentation Rate 29 MM/HR (0-15)
[2020-12-19] MEDS: KETOROLAC 30 MG/ML VIAL 15 MG IV (01:09)
[2020-12-19] MEDS: DEXAMETHASONE 10 MG/ML VIAL IV (01:10)
[2020-12-19] MEDS: LORazepam 2 MG/ML INJ 0.5 MG IV (03:39)
[2020-12-19 06:12] LABS: COVID19 - ADMIT (NP swab/PCR) Negative (Negative)
--- NOTE | 2020-12-19 06:47 | P.HP_ITS ---
History of Present Illness History of Present Illness Date Patient Seen: 12/19/20 Time Patient Seen: 05:30 Chief complaint: Back Pain Narrative: Mr. Velásquez is a 75M with PMH afib, CAD s/p stents, s/p PPM, AAA, HTN, HL, COPD on intermittent O2, hypothyroidism who presents with low back pain. He states that he first felt injury to his back last week when he went to bend over to tie his shoe. He noticed pain in his lower right back that radiated to his buttock. Over the next few days he started feeling better. However, tonight at dinner time he stood up from the table and had significant pain, and came to the hospital. He has had no trauma. He notes the pain is a gripping pain and is worse while walking or trying to put weight on his leg. He has no fevers/chills, no pain radiating down his leg, no weakness, no numbness of his leg, no loss of control of his bladder or bowel. No abdominal pain, nausea, vomiting. No chest pain, shortness of breath. He did have a herniated disc in his lower back in 1977 and did need a laminectomy at that time. In the ED workup was done, he was afebrile, with unremarkable vitals signs. Labs notable for WBC 8.7, Hgb 13.5, creatinine 0.85, INR 1.2. CT showed no acute findings, and a known 4.3cm AAA with stent nasima placed. He did receive steroids and pain meds, he was unable to ambulate and was admitted for further treatment. Patient History Medical History AAA (abdominal aortic aneurysm) without rupture Atrial fibrillation Coronary artery disease Hyperlipidemia Hypertension Family & Social History Family History Father Loud snoring Diabetes mellitus Safety & Behavioral: Feels Safe in Current Yes Environment Tobacco & Substance use: Smoking Status Never smoker Substance Use Type does not use Meds Home Medications and Allergies Home Medications Medication Instructions Recorded Confirmed Type tiotropium bromide 18 mcg capsule 1 puff INH QDAY #0 ea 10/17/15 12/19/20 History with inhalation device (Spiriva with HandiHaler) aspirin 81 mg tablet,delayed 81 mg PO QDAY #0 12/19/15 12/19/20 History release albuterol sulfate 90 mcg/actuation 1 puff INHALATION PRN PRN 12/15/17 12/19/20 History aerosol inhaler atorvastatin 40 mg tablet 40 mg PO QPM 12/15/17 12/19/20 History levothyroxine 175 mcg tablet 1 tab PO DAILY 12/15/17 12/19/20 History montelukast 10 mg tablet 10 mg PO DAILY 12/15/17 12/19/20 History budesonide-formoterol HFA 160 2 puff INHALATION BID 06/21/20 12/19/20 History mcg-4.5 mcg/actuation aerosol inhaler (Symbicort) dabigatran etexilate 150 mg 150 mg PO BID 06/21/20 12/19/20 History capsule (Pradaxa) dofetilide 250 mcg capsule 250 mcg PO BID cap 06/21/20 12/19/20 History furosemide 80 mg tablet 80 mg PO DAILY tab 06/21/20 12/19/20 History lisinopril 5 mg tablet 5 mg PO DAILY 06/21/20 12/19/20 History metoprolol tartrate 25 mg tablet 50 mg PO BID tab 06/21/20 12/19/20 History Allergies Allergy/AdvReac Type Severity Reaction Status Date / Time hydromorphone [From DILAUDID] AdvReac Mild PROJECTILE Verified 06/21/20 14:09 VOMITING Review of Systems Review of Systems Narrative: 14 systems reviewed and negative aside from what is noted in HPI Exam Vital Signs (past 8 hours): - 12/18/20 23:00 12/18/20 23:30 12/19/20 00:00 Temperature Pulse Rate 61 65 69 Respiratory Rate 10 L Blood Pressure Pulse Oximetry 92 92 12/19/20 00:30 12/19/20 01:00 12/19/20 01:30 Temperature Pulse Rate 69 61 61 Respiratory Rate 11 L 10 L 10 L Blood Pressure Pulse Oximetry 91 91 91 12/19/20 03:00 12/19/20 06:05 12/19/20 06:06 Temperature Pulse Rate 60 65 Respiratory Rate 18 Blood Pressure 118/61 Pulse Oximetry 94 94 93 12/19/20 06:15 Temperature 97.9 F Pulse Rate 65 Respiratory Rate 18 Blood Pressure 139/79 Pulse Oximetry 93 Oxygen Delivery Method Room Air Narrative Exam Narrative: GEN: no acute distress HEENT: PERRL, moist mucous membranes NECK: trachea midline, no JVD CV: regular rate and rhythm, no murmurs PULM: clear bilaterally, no wheezes, rhonchi, rales ABD: soft, nontender, nondistended, no organomegaly, normal bowel sounds EXT: warm and well perfused with no edema BACK: no tenderness to palpations NEURO: awake and alert and oriented, sensation intact, bilateral lower strength 5/5 SKIN: no rashes noted PSYCH: pleasant, cooperative Objective Labs Result Diagrams: 12/18/20 23:15 12/18/20 23:15 Labs: Laboratory Results - last 24 hr 12/18/20 12/18/20 12/18/20 23:15 23:15 23:15 WBC 8.7 RBC 4.12 L Hgb 13.5 Hct 40.1 L MCV 97.2 MCH 32.8 MCHC 33.7 RDW 13.3 Plt Count 180 Neut % (Auto) 70.3 Lymph % (Auto) 18.0 L [place] % (Auto) 9.0 Eos % (Auto) 2.2 Baso % (Auto) 0.5 Neut # (Auto) 6100 Lymph # (Auto) 1600 [place] # (Auto) 800 Eos # (Auto) 200 Baso # (Auto) 0 ESR 29 H PT 12.9 H INR 1.2 Sodium 141 Potassium 4.9 Chloride 98 Carbon Dioxide 38 H BUN 18 Creatinine 0.85 Estimated GFR > 60.0 BUN/Creatinine Ratio 21.2 Glucose 117 H Calcium 9.5 Total Bilirubin 0.5 AST 30 ALT 23 Alkaline Phosphatase 62 C-Reactive Protein 0.7 Total Protein 8.0 Albumin 4.6 Globulin 3.4 Albumin/Globulin Ratio 1.4 Lipase 69 SARS-CoV-2 (PCR) 12/19/20 05:15 WBC RBC Hgb Hct MCV MCH MCHC RDW Plt Count Neut % (Auto) Lymph % (Auto) [place] % (Auto) Eos % (Auto) Baso % (Auto) Neut # (Auto) Lymph # (Auto) [place] # (Auto) Eos # (Auto) Baso # (Auto) ESR PT INR Sodium Potassium Chloride Carbon Dioxide BUN Creatinine Estimated GFR BUN/Creatinine Ratio Glucose Calcium Total Bilirubin AST ALT Alkaline Phosphatase C-Reactive Protein Total Protein Albumin Globulin Albumin/Globulin Ratio Lipase SARS-CoV-2 (PCR) Negative Assessment & Plan Assessment & Plan narrative: Mr. Velásqeuz is a 75M with PPM CAD, s/p PPM, chronic COPD intermittently uses O2 who presents with low back pain. 1. Acute dorsalgia with probable lumbar radiculopathy -probable pain from lumbar radiculopathy -continue pain meds and steroid burst pred 60mg for 5-7 days -ambulate as able -PT consulted -MRI unable due to PPM -consider outpatient referral to ortho 2. Chronic COPD with chronic hypoxemic respiratory failure -continue PRN O2 for sat goal >88% -no acute exacerbation currently 3. CAD s/p stents with AAA s/p stent s/p PPM -asymptomatic currently -continue home medications, aspirin, dabigatran, statin 4. HTN -continue lisinopril, metoprolol 5. HL -continue statin 6. Hypothyroidism -continue synthroid CODE: DNR Proxy: Dinorah Velásquez, spouse DVT ppx: SCDs I have utilized all available immediate resources to obtain, update, or review the patient's current medications. Time Spent With Patient Critical Care time: I spent a total of [] minutes of critical care time on this patient's care today; this time is exclusive of procedural time. Quality MIPS - Admit I confirm the patient?s Advance Care Plan is present, Code status is documented, Surrogate decision maker is in patient?s record [If Yes, STOP here]: Yes
[2020-12-19] MEDS: lisinopriL 5 MG TABLET PO (08:53)
[2020-12-19] MEDS: METOPROLOL IR 25 MG TABLET 50 MG PO (08:56)
[2020-12-19] MEDS: FUROSEMIDE 40 MG TABLET 80 MG PO (08:56)
[2020-12-19] MEDS: predniSONE 20 MG TABLET 60 MG PO (08:56)
[2020-12-19] MEDS: DOCUSATE 100 MG CAPSULE PO (08:57)
[2020-12-19] MEDS: INFLUENZA HD VACCINE 0.7 ML SYRINGE IM (09:11)
[2020-12-19] MEDS: ALBUTEROL/IPRATROPIUM 3 ML AMPUL INH ×3 (09:36→16:37)
[2020-12-19] MEDS: BUDESONIDE 0.5 MG/2 ML NEB INH (09:36)
--- NOTE | 2020-12-19 11:05 | PT.IIE ---
Medical History (Last Reviewed 12/19/20 @ 06:47 by Meek Cunningham MD) AAA (abdominal aortic aneurysm) without rupture Atrial fibrillation Coronary artery disease Hyperlipidemia Hypertension Physical Therapy Inpatient Evaluation/Re-Eval M1 PT/OT-IP Prior Functional Status Start: 12/19/20 13:10 Freq: NEEDED Status: Active Protocol: Document 12/19/20 11:05 AB (Rec: 12/19/20 13:49 AB [email or web address]) Medical Review Prior Functional Status Medical History Reviewed Yes Communication able to make needs known Mobility and Gait pt stated that he is independent with all mobilities and ambulation without AD Social History Household Members spouse Living Arrangements House Number of Floors (Floors) Two Floors Number of Stairs To Enter/Railing? 2 steps to enter without AD 14 steps R rail ascending to bedroom level Home Environment High Toilet,Walk in Shower Home Equipment Four Wheel Walker,Straight Cane Additional Social History Comment spouse stated that she will not be able to assist pt if pt needs manual assist/support M2 PT-IP Current Condition Start: 12/19/20 13:33 Freq: NEEDED Status: Active Protocol: Document 12/19/20 11:05 AB (Rec: 12/19/20 13:49 AB [email or web address]) Physical Therapy Current Condition Current Condition Evaluation Date 12/19/20 Treatment Diagnosis intractable back pain; difficulty in walking Onset Date 12/19/20 Precautions Lumbar Precautions Log Roll,No Twisting,Limit Bending,Lifting Restriction of 10 lbs,Gait Belt above Incisional Area M3 PT-IP Subjective Start: 12/19/20 13:33 Freq: NEEDED Status: Active Protocol: Document 12/19/20 11:05 AB (Rec: 12/19/20 13:49 AB [email or web address]) Subjective Physical Therapy Visit Type Type Initial Evaluation Visit Start Time 11:05 Visit Stop Time 11:55 Total Visit Minutes 50 Number of PAD EXTRACTION TENDER Visits 0 Physical Therapy Visit Comments Patient Comments agreeable to do PT Therapy Pain Assessment Pain When Pain Assessed At Rest Pain Present Pain Present Pain Reported Location right lower back Intensity 1 Scale Used increases with ambulation :8 10 Pain Management Techniques Apply Cold,Distraction, Modification of Treatment,Re- positioning M4 PT-IP Mobility and Gait Start: 12/19/20 13:33 Freq: NEEDED Status: Active Protocol: Document 12/19/20 11:05 AB (Rec: 12/19/20 13:49 AB [id number]) PT-Bed Mobility Assessment Rolling Type of Rolling Log Rolling Level of Assist Standby Assistance Supine to Sit Supine to Sit Standby Assistance Sit to Supine Sit to Supine Standby Assistance PT-Transfer Assessment Sit to and From Stand Sit to and from Stand Standby Assistance,Contact Guard Assistance,1 Person Assistance,Use of Upper Extremities Equipment Transfer Assistive Device None,Gait Belt,Front Wheeled Walker Orthotic/Prosthetic Devices or Brace: No Transfers Transfer Destination Bed,Chair Transfer Technique Stand Step Pivot Transfer Ability Level of Assist Standby Assistance,Contact Guard Assistance,1 Person Assistance,Use of Upper Extremities Comments Mobility Comments pt sitting on EOB. initially stated that pain is not much on R low back. educated on back precautions. completed bed mobility log roll SBA. completed sit to stand from EOB SBA and cues and ambulated in room using FWW SBA ~ 20 ft . assessed ambulation without AD SBA to CGA ~ 10 ft with c/ o slight R sided pain but manageable per pt. pt completed sit to sidelying SBA. palpated R low back and with paraspinal muscle guarding with trigger points on L3-L5 area, MFR conducted. pt completed supine to sit SBA . ambulated in room SBA to CGA without AD ~ 15 ft but with intermittent pain on R side affecting mobility. pt sat on chair. pt stated that he hasn't had any pain meds. pt agreed to sit on chair and positioned. ice pack provided . informed nursing staff regarding pt asking for pain meds. pt agreed for PT again this afternoon to assess mobility with pain meds. Gait Assessment Gait Gait Assistance Required: Standby Assistance,Contact Guard Assist Distance (Feet) 20 Able to Maintain Weight Bearing Status Yes During Gait Assistive Devices Assistive Device None,Gait Belt,Front Wheeled Walker Orthotic/Prosthetic Devices or Brace: No Gait Deviations General Gait Pattern Antalgic,Decreased Stride Length,Wide Based Gait Factors Limiting Gait Function Factors Limiting Gait Function Decreased Activity Tolerance, Decreased Strength,Difficulty Following Directions,Limited Range of Motion,Pain,Poor Balance PT-Balance Assessment Sitting Balance and Reactions Static Sitting Balance Ability Normal Dynamic Sitting Balance Ability Good Standing Balance and Reactions Static Standing Balance Ability Good Dynamic Standing Balance Ability Fair Device Used using FWW M5 PT-IP Objective Assessments Start: 12/19/20 13:33 Freq: NEEDED Status: Active Protocol: Document 12/19/20 11:05 AB (Rec: 12/19/20 13:49 AB [id number]) Orientation Orientation/Cognition Level of Alertness Alert Orientation Name,Age,Birthday,Month,Date, Year,Day of Week,Place, Situation Language Function Ability No Deficits Noted Safety Awareness Understands Safety Issues Memory Description No Deficits Noted Gross Range of Motion Lower Extremity ROM Assessment Within Functional Limits Strength Lower Extremity Strength Assessment Within Functional Limits Coordination Assessment Gross Coordination Gross Coordination WNL Muscle Tone Muscle Tone WNL Yes M6 PT-IP Treatment Start: 12/19/20 13:33 Freq: NEEDED Status: Active Protocol: Document 12/19/20 11:05 AB (Rec: 12/19/20 13:49 AB [id number]) Physical Therapy Treatment Education Education Provided Precautions,Safety M7 PT-IP Assessment and Plan Start: 12/19/20 13:33 Freq: NEEDED Status: Active Protocol: Document 12/19/20 11:05 AB (Rec: 12/19/20 13:49 AB [email or web address]) PT Summary Assessment and Plan Potential Rehabilitation Potential Good Status of Condition at Evaluation Evolving Summary Impairments Pain,ROM,Strength,Balance, Coordination,Sensation,Tone, Cognition,Bed Mobility, Transfers,Gait,Activity Tolerance Assessment Summary pt requiring SBA to CGA with mobility but unable to tolerate much due to increase back pain. pt was only able to ambulate ~ 20 ft and needs to be more independent to safely go home. will continue to assess progress. spouse stated that she will not be able to provide physical assistance to pt. Goals Bed Mobility Goal Standby Assistance Transfer Goal Standby Assistance,Four Wheeled Walker Gait Goal Standby Assistance,Four Wheel Walker Gait Distance 200 Other Goals improve bed mobility, transfers without AD mod I, ambulation without AD 150 ft SBA up/down 2 steps without rails SBA up/down 14 steps R rail ascending SBA Days to Meet Goals 5 Frequency of Treatment Frequency Of Treatment Twice a Day Treatment Plan Physical Therapy Treatment Plan Bed Mobility Training,Transfer Training,Gait Training, Therapeutic Exercise,Balance Retraining,Discharge Planning, Hot or Cold Pack,Neuromuscular Re-ed,Coordination Retraining ,Manual Therapy Other Recommendations and Next Treatment ambulation, stair climbing Focus Precautions Lumbar Precautions Log Roll,No Twisting,Limit Bending,Lifting Restriction of 10 lbs,Gait Belt above Incisional Area Recommendations To Nursing Amount of Assist Needed 1 Person Assist Discharge Recommendations PT Discharge Recommendations Home with Assistance, Outpatient PT Transportation Needs at Discharge Private Vehicle
[2020-12-19] MEDS: IBUPROFEN 600 MG TABLET PO (12:26)
--- NOTE | 2020-12-19 12:31 | CM.DANOTE ---
Patient is a 75 yo male who was admitted on 12/19/20 for Back Pain, Intractable. Pt has [facility] and [facility] and his PCP is Iman Daniels. EMR was reviewed. Per MD, pt admitted for steroids, pain management, and PT towards determining if he is safe for d/c home. CT was normal. MRI unable to be completed due to medical condition. Per PT, pt was able to ambulate alright but had increased pain with manipulation and was unable to complete stairs at this time and will attempt again this afternoon as pt has quite a few stairs to enter his residence. Pt will need outpt f/u with ortho and outpt PT. SW met bedside with pt and explained role and he confirms he lives at home in [place] with his and is active and independent with ADL's at baseline and drives. Pt travels a fair amount with to see family in [place] and has hx of back pain off and on for many years. Pt denies any hx of HH or SNF and preference is home once pain controlled and his spouse is available for assist at d/c. Pt confirms that steroids have decreased his pain and made it more tolerable and manageable. Plan: SW to follow closely for further PT and stairs towards determining plan of home with spouse and outpt f/u with Ortho and PT and any further identified needs. MENDEL Doan Discharge Planning/Care Management CM Discharge Assessment Start: 12/19/20 12:29 Freq: Status: Active Protocol: Document 12/19/20 12:29 BF (Rec: 12/19/20 12:31 BF [id number]) Discharge Planning Assessment Assigned Wood Grainer MENDEL Martino DPOA/Assigned Designee Name navid Copeland Contact Information [phone] Advance Directives? Yes Advance Directives on File Yes History Provided By Patient,Significant Other, Medical Record Has Patient been admitted in last 30 No days? Prior Living Arrangements House Household Members spouse Type of transporation used prior to Drives own vehicle admit Independent with ADL's Yes Is patient alert and oriented? Yes Caregiver for Another No Patient/Family Preference OP PT Therapy Comment Outpt Ortho f/u Barriers to Discharge No Discharge Plan Home Community Services Physical Therapy Transportation Arrangement Spouse can provide transport at d/c Referrals Initiated None needed Additional Comment Ortho outpt f/u Whiteboard Updated in Patient Room with Yes name and ext. # of Wood Grainer Review Status In Process Please Provide Date Initial DC 12/19/20 Assessment Was Performed Next Review Type Continued Stay Review
[2020-12-19] MEDS: OXYCODONE IR 5 MG TABLET PO (14:22)
--- NOTE | 2020-12-19 14:25 | PT.IPTN ---
Physical Therapy Treatment Note M2 PT-IP Current Condition Start: 12/19/20 13:33 Freq: NEEDED Status: Active Protocol: Document 12/19/20 11:05 AB (Rec: 12/19/20 13:49 AB [id number]) Physical Therapy Current Condition Current Condition Evaluation Date 12/19/20 Treatment Diagnosis intractable back pain; difficulty in walking Onset Date 12/19/20 Precautions Lumbar Precautions Log Roll,No Twisting,Limit Bending,Lifting Restriction of 10 lbs,Gait Belt above Incisional Area M3 PT-IP Subjective Start: 12/19/20 13:33 Freq: NEEDED Status: Active Protocol: Document 12/19/20 14:25 AB (Rec: 12/19/20 15:35 AB [email or web address]) Subjective Physical Therapy Visit Type Type Treatment Note Visit Start Time 14:25 Visit Stop Time 14:55 Total Visit Minutes 30 Number of HIRED HAND Visits 0 Physical Therapy Visit Comments Patient Comments agreeable to do PT Therapy Pain Assessment Pain When Pain Assessed At Rest Pain Present Pain Present Pain Reported Location right lower back Intensity 2 Scale Used occasionally has increase pain during mobility Pain Management Techniques Apply Cold,Distraction, Modification of Treatment,Re- positioning,Timing of Activity with Medications M4 PT-IP Mobility and Gait Start: 12/19/20 13:33 Freq: NEEDED Status: Active Protocol: Document 12/19/20 14:25 AB (Rec: 12/19/20 15:35 AB [email or web address]) PT-Transfer Assessment Sit to and From Stand Sit to and from Stand Standby Assistance Equipment Transfer Assistive Device Gait Belt,4 Wheeled Walker Orthotic/Prosthetic Devices or Brace: No Comments Mobility Comments pt sitting on chair. agreed to do PT. completed sit to stand SBA and ambulated in room using 4WW SBA. occasionally increase R LBP with pt tending to tighten up. pt stated that a sudden onset of increase pain. pt agreed to ambulate in the hallway and completed ~ 150 ft using 4WW. completed up/down steps using R rail ascending SBA and also completed up/down platform step with pt touching L side of wall (pt stated that he can touch side of the house to enter the house). pt ambulated back to his room. ambulated ~ 20 ft in room without AD SBA. pt experienced more sudden onset of pain without using 4WW. pt sat on chair. positioned on chair. ice pack provided. call light and table placed within reach. educated pt on safety and use of 4WW at this time and pt agreed. Gait Assessment Gait Gait Assistance Required: Standby Assistance Distance (Feet) 150 Able to Maintain Weight Bearing Status Yes During Gait Assistive Devices Assistive Device Gait Belt,4 Wheeled Walker Orthotic/Prosthetic Devices or Brace: No Gait Deviations General Gait Pattern Antalgic,Decreased Stride Length Factors Limiting Gait Function Factors Limiting Gait Function Decreased Activity Tolerance, Decreased Strength,Limited Range of Motion,Pain,Poor Balance,Poor Safety Awareness Comments Gait Comments pls refer to mobility section for details Stair Climbing Assessment Evaluation Level of Assist On Stairs Standby Assistance Devices Stair Climbing Assistive Devices Right Railing Technique/Endurance Stair Climbing Direction Ascend and Descend Stair Climbing Technique Step to Step Number of Steps Climbed 3 Stair Climbing Set # Repetitions (reps) 2 Comments Stair Climbing Comments also completed platform step touch L wall SBA M5 PT-IP Objective Assessments Start: 12/19/20 13:33 Freq: NEEDED Status: Active Protocol: Document 12/19/20 11:05 AB (Rec: 12/19/20 13:49 AB [email or web address]) Orientation Orientation/Cognition Level of Alertness Alert Orientation Name,Age,Birthday,Month,Date, Year,Day of Week,Place, Situation Language Function Ability No Deficits Noted Safety Awareness Understands Safety Issues Memory Description No Deficits Noted Gross Range of Motion Lower Extremity ROM Assessment Within Functional Limits Strength Lower Extremity Strength Assessment Within Functional Limits Coordination Assessment Gross Coordination Gross Coordination WNL Muscle Tone Muscle Tone WNL Yes M6 PT-IP Treatment Start: 12/19/20 13:33 Freq: NEEDED Status: Active Protocol: Document 12/19/20 14:25 AB (Rec: 12/19/20 15:35 AB [email or web address]) Physical Therapy Treatment Education Education Provided Safety M7 PT-IP Assessment and Plan Start: 12/19/20 13:33 Freq: NEEDED Status: Active Protocol: Document 12/19/20 14:25 AB (Rec: 12/19/20 15:35 [email or web address]) PT Summary Assessment and Plan Potential Rehabilitation Potential Good Summary Impairments Pain,ROM,Strength,Balance, Coordination,Sensation,Bed Mobility,Transfers,Gait, Activity Tolerance Progress Towards Goals Slow Progress due to Pain Assessment Summary pt requiring SBA with mobility and continues to have intermittent pain on R low back that increases with mobility. recommending pt to use 4WW at this time and pt agreed. pt will need outpt PT . Goals Bed Mobility Goal Independent Transfer Goal Independent,Four Wheeled Walker Gait Goal Standby Assistance,Four Wheel Walker Gait Distance 200 Other Goals improve bed mobility, transfers without AD mod I, ambulation without AD 150 ft mod I up/down 2 steps without rails mod I up/down 14 steps R rail ascending mod I Days to Meet Goals 5 Frequency of Treatment Frequency Of Treatment Once a Day Treatment Plan Physical Therapy Treatment Plan Bed Mobility Training,Transfer Training,Gait Training, Therapeutic Exercise,Balance Retraining,Discharge Planning, Hot or Cold Pack,Neuromuscular Re-ed,Coordination Retraining ,Manual Therapy Other Recommendations and Next Treatment ambulation, stair climbing Focus Precautions Lumbar Precautions Log Roll,No Twisting,Limit Bending,Lifting Restriction of 10 lbs,Gait Belt above Incisional Area Recommendations To Nursing Amount of Assist Needed 1 Person Assist Discharge Recommendations PT Discharge Recommendations Home with Assistance, Outpatient PT Transportation Needs at Discharge Private Vehicle
--- NOTE | 2020-12-19 14:30 | OT.IP.EVAL ---
Past Medical History (Last Reviewed 12/19/20 @ 06:47 by Meek Cunningham MD) AAA (abdominal aortic aneurysm) without rupture Atrial fibrillation Coronary artery disease Hyperlipidemia Hypertension Occupational Therapy Inpatient Evaluation/Re-Eval M1 PT/OT-IP Prior Functional Status Start: 12/19/20 13:10 Freq: NEEDED Status: Active Protocol: Document 12/19/20 14:29 [facility] (Rec: 12/19/20 14:42 [facility] [id number]) Medical Review Prior Functional Status Medical History Reviewed Yes Communication able to make needs known Mobility and Gait pt stated that he is independent with all mobilities and ambulation without AD Activities of Daily Living and IADL's Pt states completely independent with all ADl, IADl , drives and takes care of the dog and cats at home. Social History Household Members spouse Living Arrangements House Number of Floors (Floors) Two Floors Number of Stairs To Enter/Railing? 2 steps to enter without AD 14 steps R rail ascending to bedroom level Home Environment High Toilet,Walk in Shower Home Equipment Four Wheel Walker,Straight Cane Additional Social History Comment spouse stated that she will not be able to assist pt if pt needs manual assist/support M2 OT-IP Current Condition Start: 12/19/20 13:10 Freq: Status: Active Protocol: Document 12/19/20 14:29 [facility] (Rec: 12/19/20 14:42 [facility] [id number]) Occupational Therapy Current Condition Current Condition Evaluation Date 12/19/20 Treatment Diagnosis Intractable back pain Diagnosis Onset Date 12/19/20 Post Operative Precautions Lumbar Precautions Log Roll,No Twisting,Limit Bending,Lifting Restriction of 10 lbs,Gait Belt above Incisional Area M3 OT- IP Subjective and Pain Start: 12/19/20 13:10 Freq: Status: Active Protocol: Document 12/19/20 14:29 [facility] (Rec: 12/19/20 14:42 [facility] [id number]) OT- Subjective Occupational Therapy Visit Type Type Initial Evaluation Visit Start Time 13:50 Visit Stop Time 14:30 Total Visit Minutes 40 Occupational Therapy Visit Comments Patient Comments Pt agreed to work with OT for eval. Patient/Caregiver Goals To go home when medically stable. OT Pain Assessment Pain When Pain Assessed During Mobility Pain Present Pain Present Pain Reported Location right lower back Intensity 1 Scale Used Numeric (0 - 10) M4 OT- IP ADL's Start: 12/19/20 13:10 Freq: Status: Active Protocol: Document 12/19/20 14:29 [facility] (Rec: 12/19/20 14:42 [facility] [id number]) OT [id number] Comments OT Self-Feeding Comments Not at meal time. OT ADL-Grooming General Evaluation Grooming Ability Independent Comments OT Grooming Comments pt able to wash his hands OT ADL-Oral Care Comments Oral Care Comments Pt educated best to hinge at his hips to lean forwards to the sink to spit. OT ADL-Dressing General Eval Lower Body Dressing Ability Maximum Assistance Comments OT Dressing Comments Able to show pt LB dressing equipment to be able to assist with his dressing needs as pt state his back seized up when he was leaning forwards to tie his right shoe which exacerbated his back pain. Therefore LB dressing equipment would be helpful to pt if having trouble with his back. OT ADL-Toileting General Evaluation Toileting Ability Independent, Suggested a bidet may be helpful. Pt states he is able to lean over to the right to reach adequately. OT ADL-Bathing Comments OT Bathing Comments not performed M5 OT- IP IADL's Start: 12/19/20 13:10 Freq: Status: Active Protocol: Document 12/19/20 14:29 [facility] (Rec: 12/19/20 14:42 [facility] [id number]) OT-Instrumental Activities of Daily Living Home Safety Awareness Awareness of Need for Assistance at Home Good Awareness Ability to Problem Solve Emergency Able to Problem Solve Situations M6 OT- IP Functional Cognition Start: 12/19/20 13:10 Freq: Status: Active Protocol: Document 12/19/20 14:29 [facility] (Rec: 12/19/20 14:42 [facility] [id number]) Cognitive Factors Limiting Selfcare Function Cognitive Ability Level of Alertness Alert Patient Orientation Name,Age,Birthday,Month,Date, Year,Day of Week,Place, Situation Attention Span Ability Capable of Focused Attention, Capable of Sustained Attention Ability to Follow Commands Able to Follow Multi-Step Commands Cognitive Comments Cognitive Assessment Comments Pt appears intact and at baseline needs. Per pt prior has occasional word finding difficulties as witnessed on OT eval. OT- Vision and Hearing OT- Hearing Assessment OT- Hearing Assessment WFL OT- Vision Assessment Visual Acuity Glasses All The Time Occular Pursuits WFL M7 OT- IP Mobility and Balance Start: 12/19/20 13:10 Freq: Status: Active Protocol: Document 12/19/20 14:29 [facility] (Rec: 12/19/20 14:42 [facility] [id number]) OT-Transfer Assessment Sit to and From Stand Sit to and from Stand Independent Transfers Transfer Ability Independent Technique Transfer Destination Chair Devices Transfer Assistive Devices None Comments Mobility Comments Pt able to walk in and out of the bathroom to and from the recliner independently. OT- Balance Assessment Sitting Balance and Reactions Static Sitting Balance Ability Normal Standing Balance and Reactions Static Standing Balance Ability Good Dynamic Standing Balance Ability Fair Comments Other Balance Tests/Deviations/Treatment Pt able to move in the room on : his own independently in the room. M8 OT- IP Objective Assessments Start: 12/19/20 13:10 Freq: Status: Active Protocol: Document 12/19/20 14:29 [facility] (Rec: 12/19/20 14:42 [facility] [id number]) OT Gross Range of Motion Upper Extremity Range of Motion Assessment Within Functional Limits OT- Coordination Assessment Upper Extremity Finger to Nose Test Within Functional Limits OT-Muscle Tone Assessment Muscle Tone WNL Yes M9 OT- IP Assessment and Plan Start: 12/19/20 13:10 Freq: Status: Active Protocol: Document 12/19/20 14:29 [facility] (Rec: 12/19/20 14:42 [facility] [id number]) OT Summary Assessment and Plan Potential Rehabilitation Potential Excellent Analytic Complexity at Evaluation Moderate Summary OT Impairments Pain,Dressing,Toileting, Bathing Progress Towards Goals Progressing Toward Goals Assessment Summary Pt mod complexity and main barriers are steps and pain which make his ADl's and IADl need more difficulty. Able to suggest getting LB dressing equipment when his back acts up at home , also to be mindful and think of different ways to do things at home such as feeding the pets by not bending over. Pt to go home when medically stable. Goals Dressing Goal Independent Bathing Goal Independent Shower Transfer Goal Independent Days to Meet Goals 1 Frequency of Treatment Frequency Of Treatment Once a Day Treatment Plan OT Treatment Plan ADL Training,Functional Mobility,Patient/Family Education,Discharge Planning Other Treatment Recommendations and Next shower if pt still here Treatment Focus Discharge Recommendations OT Discharge Recommendations Home with Assistance Home Equipment Needs LB dressing equipment Transportation Needs at Discharge Private Vehicle
--- NOTE | 2020-12-19 14:44 | PC.NURSE ---
A&Ox4. VSS. Pain 1-2/10, worse with walking. Given PRN ibyprofen and oxycodone prior to working with PT which provided relief. full sensation BLE. Calls appropriately. Bed low. Call light within reach.
[2020-12-19] MEDS: ATORVASTATIN 20 MG TABLET 40 MG PO (17:10)
[2020-12-19] MEDS: DOFETILIDE 250 MCG 250 EACH PO (17:12)
[2020-12-19] MEDS: ACETAMINOPHEN 325 MG TABLET 650 MG PO (17:50)
== END 2020-12-19 18:17 | disposition home or self-care (01) ==
LOC: ED 12-19 04:58 → AC 12-19 05:00
PROVIDERS: Admitting Provider Internal Medicine; Emergency Provider Emergency Medicine; PCP Physician Assistant; Visit Provider Internal Medicine
DX: M54.50 Low back pain, unspecified (principal); I10 Essential (primary) hypertension; E78.5 Hyperlipidemia, unspecified; M62.830 Muscle spasm of back; I48.91 Unspecified atrial fibrillation; I25.10 Atherosclerotic heart disease of native coronary artery without angina pectoris; J96.11 Chronic respiratory failure with hypoxia; J44.9 Chronic obstructive pulmonary disease, unspecified; E03.9 Hypothyroidism, unspecified; Z20.822 Contact with and (suspected) exposure to COVID-19; Z23 Encounter for immunization
CPT/HCPCS: 74177; 80053; 83690; 85025; 85610; 85651; 86140; 87635; 90471; 90662; 94640; 94760; 96374; 96375; 97116; 97162; 97166; 97530; 97535; 99284; C9803; G0378; J1100; J1885; J2060; J3010; Q9967

== ENCOUNTER → 2021-01-26 15:10 | Outpatient (CLI) | payer MEDICARE, OTHER, SELFPAY ==
[2017-08-26 16:00] VITALS: BMI 29.0
[2020-12-19 06:32] VITALS: BMI 38.1
[2021-01-26 16:35] LABS: BUN Creatinine Ratio 19.8 (6-22); Blood Urea Nitrogen 18 mg/dL (9-20); Calcium 9.2 mg/dL (8.4-10.2); Carbon Dioxide 34 mmol/L (22-32); Chloride 99 mmol/L (98-107); Estimated Glomerular Filt Rate > 60.0 mL/min (>60); Glucose 113 mg/dL (80-110); HEMOLYSIS < 15 (0-50); Potassium 3.9 mmol/L (3.4-5.1); Sodium 139 mmol/L (137-145)
[2021-01-26 18:04] LABS: Thyroid Stimulating Hormone 1.77 uIU/mL (0.47-4.68)
== END ==
PROVIDERS: PCP Physician Assistant; Referring Provider Internal Medicine; Visit Provider Internal Medicine
DX: I48.91 Unspecified atrial fibrillation (principal)
CPT/HCPCS: 36415; 80048; 84443

== ENCOUNTER → 2021-12-07 14:53 | Outpatient (CLI) | payer MEDICARE, OTHER, SELFPAY ==
[2021-07-25 14:24] VITALS: BMI 29.0; BMI 38.1
--- NOTE | 2021-12-07 14:55 | DI.RAD.S_ITS ---
PROCEDURE: XR CHEST 2V INDICATIONS: Cough TECHNIQUE: 2 views of the chest were acquired. COMPARISON: [facility], , CHEST 2 VIEW, 06/10/2017, 13:50. FINDINGS: Surgical changes and devices: left-sided cardiac pacer device is in place. . Lungs and pleura: Mild diffuse interstitial prominence. Mild perihilar airway thickening. No focal consolidation. No pneumothorax or pleural effusion. Mediastinum: Mediastinal contours are stable. Heart size is normal. Bones and chest wall: No suspicious bony abnormalities. Soft tissues appear unremarkable. IMPRESSION: Mild diffuse interstitial prominence with perihilar airway thickening suggestive of nonspecific bronchitis either infectious or inflammatory in etiology. No focal airspace disease identified. Dictated by: Mark Freitas M.D. on 12/07/2021 at 17:26 Approved by: Mark Freitas M.D. on 12/07/2021 at 17:28
== END ==
PROVIDERS: PCP Physician Assistant; Referring Provider Physician Assistant; Visit Provider Physician Assistant
DX: R05.9 Cough, unspecified (principal)
CPT/HCPCS: 71046

== ENCOUNTER → 2022-05-21 07:44 | Outpatient (CLI) | payer MEDICARE, OTHER, SELFPAY ==
[2021-07-25 14:24] VITALS: BMI 29.0; BMI 38.1
--- NOTE | 2022-05-21 | DI.ECHO.S_ITS ---
[facility] +[facility]+ : : [address] : : : : [id number] : : : : Phone: [phone]+ Echocardiogram Report + + :Name: SAMANTHA CORNELIUS Study Date: 05/21/2022 Height: 75 in : :[facility] ReadingLocation: Weight: 300 lb : : Gender: Male BSA: 2.6 m2 : :: 1945 Age: 76 yrs BP: 137/85 mmHg: :Reason For Study: ATRIAL FIBRILLATION : :Ordering Physician: Jan BOSCHformed By: Sheri Arevalo : :Referring: LUCY BOSCH : + + Interpretation Summary Technically difficult study. Contrast not used due to severe Definity reaction on prior echocardiogram. There is mild concentric left ventricular hypertrophy. The ejection fraction is estimated to be 50-55%. There is a moderate dyssynchronous contraction pattern due to the paced rhythm. The right ventricle is normal in size and function. There is mild biatrial enlargement. Compared to the prior study dated 12/24/2021, no obvious change however both studies are quite limited. Procedure: The study quality was technically limited. The study quality was technically difficult. UNABLE TO USE DEFINITY DUE TO PATIENT PRIOR REACTION. Most of the acoustic windows were suboptimal, but the best imaging was obtained from the subcostal window. Comparison is made with the echocardiogram of 12/24/2021. The patient has a paced rhythm. The heart rate ranged between 77-81 bpm during the study. Left Ventricle: The left ventricle is normal in size. There is mild concentric left ventricular hypertrophy. The ejection fraction is estimated to be 50-55%. Regional wall motion abnormalities cannot be excluded due to limited visualization. There is a moderate dyssynchronous contraction pattern due to the paced rhythm. Right Ventricle: The right ventricle is normal in size and function. Atria: There is mild biatrial enlargement. Mitral Valve: There is mild mitral annular calcification. The mitral valve is normal. Aortic Valve: The aortic valve is not well visualized. Tricuspid Valve: The tricuspid valve is not well visualized, but is grossly normal. Pericardium/ Pleura There is no pericardial effusion. There is an anterior echo-free space consistent with a fat pad. There is no pleural effusion. MMode/2D Measurements & Calculations LVIDd: 4.0 cm LA A2 area: 27.6 cm2 LVIDs: 2.7 cm LA A4 area: 24.5 cm2 FS: 31.1 % LA length (vol): 6.8 cm EPSS: 0.79 cm LA vol: 83.9 ml IVSd: 1.3 cm LA vol index: 32.2 ml/m2 LVPWd: 1.3 cm LV jim. diameter/BSA (cm/m^2): 1.5 LV sys. diameter/BSA (cm/m^2): 1.1 RA long axis: 6.3 cm RA area: 20.7 cm2 RA vol: 57.9 ml RA : 22.2 ml/m2 Reading Physician:12:38 PM
== END ==
PROVIDERS: PCP Physician Assistant; Referring Provider Internal Medicine Cardiovascular Disease; Visit Provider Internal Medicine Cardiovascular Disease
DX: I34.81 Nonrheumatic mitral (valve) annulus calcification (principal); I48.21 Permanent atrial fibrillation; Z95.0 Presence of cardiac pacemaker
CPT/HCPCS: 93307

== ENCOUNTER → 2023-03-06 13:38 | Outpatient (CLI) | payer MEDICARE, OTHER, SELFPAY ==
[2023-02-04 10:24] VITALS: BMI 29.0; BMI 38.1
--- NOTE | 2023-03-06 13:40 | DI.CT.S_ITS ---
PROCEDURE: CT LUNG LOW DOSE SCREENING INDICATIONS: lung cancer screening 88 pack years quit 2011 TECHNIQUE: Noncontrast 2.0-2.5 mm thick sections acquired from the pulmonary apices to the posterior costophrenic angles. 7 mm thick axial MIP, and 5 mm coronal and sagittal reformats were then acquired. For radiation dose reduction, the following was used: automated exposure control, adjustment of mA and/or kV according to patient size. COMPARISON: [facility], CT, CT LOW DOSE LUNG CA SCREENING, 07/07/2021, 11:50. FINDINGS: Image quality: Diagnostic. Lower Neck: No enlarged lymph nodes. Thyroid: No thyroid nodules which require sonographic follow up, per consensus guidelines. Axillae: No enlarged lymph nodes. Chest Wall: Unremarkable. Bones: Unremarkable. Lungs and Pleura: No pneumothorax or pleural effusions. Interval development of a pleural based nodule in the extreme left lung base, potentially inflammatory in nature, or related to atelectasis, measuring 1.1 x 1.4 cm. There is nearby atelectasis. Reference image 269/3. Heart: Heart size is normal. No pericardial effusion. Pacemaker. Moderate to severe coronary artery calcifications. Thoracic Vessels: The aorta and pulmonary arteries demonstrate normal size. Mediastinum and Yvette: No enlarged lymph nodes. Esophagus: No wall thickening. No hiatal hernia. Upper Abdomen: Visualized upper abdomen solid organs and bowel loops appear normal. IMPRESSION: Interval development of a 1.1 x 1.4 cm nodular density in the extreme left lung base. This most likely is inflammatory in nature or related to atelectasis. However, cannot completely exclude malignancy. Therefore, recommend [address] follow-up. LUNG-RADS 4A: Recommend 3 month follow-up CT chest. Clinically Significant Non-pulmonary Findings: Moderate to severe coronary artery calcifications. Dictated by: Pawan Prajapati M.D. on 03/06/2023 at 17:46 Approved by: Pawan Prajapati M.D. on 03/06/2023 at 17:52
== END ==
PROVIDERS: PCP Physician Assistant; Referring Provider Internal Medicine; Visit Provider Internal Medicine
DX: R91.1 Solitary pulmonary nodule (principal); Z12.2 Encounter for screening for malignant neoplasm of respiratory organs; J44.9 Chronic obstructive pulmonary disease, unspecified; I25.10 Atherosclerotic heart disease of native coronary artery without angina pectoris; Z87.891 Personal history of nicotine dependence
CPT/HCPCS: 71271

== ENCOUNTER → 2023-06-04 12:05 | Outpatient (CLI) | payer MEDICARE, OTHER, SELFPAY ==
[2023-02-04 10:24] VITALS: BMI 29.0; BMI 38.1
--- NOTE | 2023-06-04 12:08 | DI.CT.S_ITS ---
PROCEDURE: CT CHEST W CON INDICATIONS: fu LLL lung nodules (new) and mediastinal adenopathy TECHNIQUE: After the administration of intravenous contrast, 5 mm thick sections acquired from the pulmonary apices to the posterior costophrenic angles. 1 mm axial lung, 5 mm thick coronal and sagittal reformats and 7 mm axial MIP were acquired. For radiation dose reduction, the following was used: automated exposure control, adjustment of mA and/or kV according to patient size. COMPARISON: CT 03/06/2023. FINDINGS: Image quality: Diagnostic. Lower Neck: No enlarged lymph nodes. Thyroid: No thyroid nodules which require sonographic follow up, per consensus guidelines. Axillae: No enlarged lymph nodes. Chest Wall: Left chest wall AICD device. Bones: Unremarkable. Lungs and Pleura: No pneumothorax or pleural effusions. Previously described pleural-based nodule at the left lung base is no longer visualized. There is persistent left basilar atelectasis. Redemonstration of lower lobe predominant bronchiectasis and airway thickening. Findings are non-specific and may represent reactive airway disease. No new or enlarging pulmonary nodule. Heart: Heart size is normal. No pericardial effusion. Coronary artery calcifications. Thoracic Vessels: The aorta and pulmonary arteries demonstrate normal size. Mediastinum and Yvette: No enlarged lymph nodes. Esophagus: No wall thickening. No hiatal hernia. Upper Abdomen: Visualized upper abdomen solid organs and bowel loops appear normal. IMPRESSION: Compared to prior CT on 02/26/2023, interval resolution of subpleural nodular density in the left lung base. No new or enlarging pulmonary nodule. Continue annual low-dose CT chest lung cancer screening if patient meets eligibility criteria. Approved by: Lora Cisneros M.D.,Ph.D. on 06/04/2023 at 23:39
[2023-06-04 12:45] LABS: Estimated Glomerular Filt Rate > 60 mL/min (>60)
== END ==
PROVIDERS: Radiology Diagnostic Radiology; PCP Physician Assistant; Referring Provider Internal Medicine; Visit Provider Internal Medicine
DX: R91.8 Other nonspecific abnormal finding of lung field (principal); R59.0 Localized enlarged lymph nodes; I25.10 Atherosclerotic heart disease of native coronary artery without angina pectoris; Z95.810 Presence of automatic (implantable) cardiac defibrillator
CPT/HCPCS: 36415; 71260; 82565; Q9967

== ENCOUNTER 2023-07-10 08:35 | Inpatient (IN) | payer MEDICARE, OTHER, SELFPAY ==
[2023-02-04 10:24] VITALS: BMI 29.0; BMI 38.1
[2023-07-10] VITALS (31 sets, daily range): BP systolic 88–150; BP diastolic 50–80; PULSE 78–104; RESP 18–37; TEMP 36.6–39.6; O2SAT 86–97; BMI 33.1
--- NOTE | 2023-07-10 08:51 | ED_ITS ---
HPI - SOB/Dyspnea General Chief Complaint: Shortness of Breath/Dyspnea Stated Complaint: SOB, COPD Time Seen by Provider: 07/10/23 08:49 Source: patient, EMS, RN notes reviewed and old records reviewed Mode of arrival: EMS Limitations: no limitations History of Present Illness HPI Narrative: 77-year-old male former smoker with history of COPD, hypothyroidism, hypertension, dyslipidemia, atrial fibrillation on Eliquis with difficulty with breathing. Patient states he has had chronic shortness of breath but has been worse the past week. Has had fevers and chills nightly, he has had a cough with productive sputum that has been yellow, patient denies any chest pain or pressure. Denies any abdominal pain. No nausea or vomiting, no diarrhea constipation. He denies any swelling of extremities. Notes multiple family members at home have been ill recently. Patient states he takes medications for his heart including atrial fibrillation, hypertension dyslipidemia as well as a diuretic, hypothyroidism and has history of COPD but does not use any inhalers normally. Patient states he is allergic to Dilaudid. Former smoker quit in 2011, no alcohol, no recreational drugs. Her primary care provider is Liliana Stahl. Patient received DuoNeb EN route with EMS was mid 90s on pulse ox with 5L per EMS but difficult to acquire good waveform. Related Data Home Medications Medication Instructions Recorded Confirmed tiotropium bromide 18 mcg capsule 1 puff INH QDAY #0 ea 10/17/15 06/12/23 with inhalation device (Spiriva with HandiHaler) aspirin 81 mg tablet,delayed 81 mg PO QDAY ##0 12/19/15 06/12/23 release albuterol sulfate 90 mcg/actuation 1 puff inhalation PRN PRN 12/15/17 06/12/23 aerosol inhaler Shortness Of Breath atorvastatin 40 mg tablet 40 mg PO QPM 12/15/17 06/12/23 levothyroxine 175 mcg tablet 1 tab PO DAILY 12/15/17 06/12/23 budesonide-formoterol HFA 160 2 puff inhalation BID 06/21/20 06/12/23 mcg-4.5 mcg/actuation aerosol inhaler (Symbicort) furosemide 80 mg tablet 80 mg PO DAILY 06/21/20 06/12/23 lisinopril 5 mg tablet 5 mg PO DAILY 06/21/20 06/12/23 apixaban 5 mg tablet (Eliquis) 5 mg PO BID 02/19/23 06/12/23 metoprolol tartrate 25 mg tablet 25 mg PO BID 02/19/23 06/12/23 metoprolol succinate 25 mg mg PO 07/10/23 tablet,extended release 24 hr Previous Rx's Medication Instructions Recorded montelukast 10 mg tablet 10 mg PO DAILY #30 tabs 07/04/23 Allergies Allergy/AdvReac Type Severity Reaction Status Date / Time hydromorphone [From DILAUDID] AdvReac Mild PROJECTILE Verified 06/12/23 09:29 VOMITING Review of Systems Review of Systems ROS Unobtainable: All systems reviewed & are unremarkable except as noted in HPI and below Patient History Medical History Obstructive sleep apnea Coronary artery disease AAA (abdominal aortic aneurysm) without rupture Atrial fibrillation Hyperlipidemia Hypertension Family History Father Loud snoring Diabetes mellitus Social History household members: spouse Smoking Status: Former smoker Tobacco: How many years used: 40 alcohol intake: current Smoking Status: Former smoker alcohol intake frequency: a few times a week Substance Use Type: does not use Exam Narrative Exam Narrative: GENERAL: Alert and oriented x three, elderly male in distress. Patient is warm to touch. HEENT: Head normocephalic, atraumatic, EOMI, pupils reactive, face symmetric, moist mucous membranes NECK: Supple, full range of motion CARDIOVASCULAR: Regular rate and rhythm without murmurs, rubs or gallops. No JVD. No edema bilateral lower extremities. RESPIRATORY: Breath sounds are equal bilaterally, he has some mild wheezes expiratory upper and lower, no rales or rhonchi. Mild tachypnea. No accessory muscle use. ABDOMEN: Soft, nontender. Normoactive bowel sounds all 4 quadrants. No guarding or rebound, rigidity, no mass : No CVA tenderness EXTREMITIES: Normal range of motion, no clubbing or edema. Day plus pulses bilateral lower extremities. Neurovascularly intact NEUROLOGICAL: Cranial nerves II through XII grossly intact. Moving all extremities SKIN: Warm, dry, no petechiae, no rashes or lesions. Initial Vital Signs Initial Vital Signs: Vital Signs Pulse Rate 78 07/10/23 08:40 Pulse Oximetry 86 L 07/10/23 08:40 Oxygen Delivery Method Room Air 07/10/23 08:40 Course Orders Ordered: ED Orders 07/10/23 08:49 Blood Culture Stat 07/10/23 08:50 XR chest 1V Stat 07/10/23 09:00 Complete Blood Count AUTO DIFF Stat Comprehensive Metabolic Panel Stat Lactate (Lactic Acid) Stat Lipase Stat NT-proBNP (BNP-Adult 18+) Stat Procalcitonin Stat Respiratory Panel (Film Array) Stat Troponin & CK Cardiac Panel Stat 07/10/23 09:42 EKG-12 Lead Stat Acetaminophen (Acetaminophen 325 Mg Tablet) 650 mg PO Q6H PRN PRN Reason: Fever/Mild Pain (1-3) Albuterol (Albuterol 2.5 Mg/3 Ml Neb (Adult)) 2.5 mg INH [id number] PRN PRN Reason: Shortness Of Breath Or Wheezing Albuterol/Ipratropium (Albuterol/Ipratropium 3 Ml Ampul) 3 ml INH [id number] [facility] Last Admin: 07/10/23 13:20 Dose: 3 ml Documented By: TIGIST Azithromycin (Azithromycin 250 Mg Tablet) 500 mg PO DAILY [facility] Sodium Chloride (Normal Saline 0.9%) 1,000 mls @ 100 mls/hr IV CONT [facility] Last Admin: 07/10/23 11:41 Dose: 100 mls/hr Documented By: DANA Methylprednisolone (Methylprednisolone 125 Mg/2 Ml Vial) 60 mg IV Q6HR [facility] Last Admin: 07/10/23 11:50 Dose: 60 mg Documented By: DANA Naloxone HCl (Naloxone 0.4 Mg/Ml Vial) 0.2 mg IV Q2MIN PRN PRN Reason: Opiate Reversal Ondansetron HCl (Ondansetron 4 Mg/2 Ml Inj) 4 mg IV Q8HR PRN PRN Reason: Nausea And Vomiting Discontinued Medications Acetaminophen (Acetaminophen 325 Mg Tablet) 975 mg PO NOW ONE Stop: 07/10/23 08:52 Last Admin: 07/10/23 09:47 Dose: 975 mg Documented By: DANA Albuterol (Albuterol 2.5 Mg/3 Ml Neb (Adult)) 2.5 mg INH NOW ONE Stop: 07/10/23 08:49 Last Admin: 07/10/23 08:52 Dose: 2.5 mg Documented By: BRITANY Albuterol (Albuterol 2.5 Mg/3 Ml Neb (Adult)) 2.5 mg INH NOW ONE Stop: 07/10/23 09:50 Last Admin: 07/10/23 09:52 Dose: 2.5 mg Documented By: BRITANY Ceftriaxone Sodium 2,000 mg/ (Sodium Chloride) 100 mls @ 200 mls/hr IV NOW ONE Stop: 07/10/23 09:58 Last Infusion: 07/10/23 13:23 Dose: Infused Documented By: Admin: 07/10/23 11:38 Dose: 200 mls/hr Documented By: DANA Azithromycin 500 mg/ Dextrose 250 mls @ 250 mls/hr IV NOW ONE Stop: 07/10/23 09:58 Last Infusion: 07/10/23 13:06 Dose: Infused Documented By: DANA(2) Admin: 07/10/23 11:39 Dose: 250 mls/hr Documented By: DANA Methylprednisolone (Methylprednisolone 125 Mg/2 Ml Vial) 125 mg IV NOW ONE Stop: 07/10/23 08:50 Last Admin: 07/10/23 09:47 Dose: 125 mg Documented By: DANA Vital Signs Vital signs: Vital Signs - 8 hr 07/10/23 08:40 07/10/23 08:42 07/10/23 08:42 Temperature Pulse Rate 78 78 Respiratory Rate Blood Pressure 150/76 H Pulse Oximetry 86 L 95 Oxygen Delivery Method Room Air Nasal Cannula Oxygen Flow Rate 5 07/10/23 08:47 07/10/23 08:47 07/10/23 08:52 Temperature Pulse Rate 81 78 Respiratory Rate 31 H 28 H Blood Pressure 138/71 Pulse Oximetry 94 95 Oxygen Delivery Method Nasal Cannula Nasal Cannula Oxygen Flow Rate 4 2 07/10/23 09:00 07/10/23 09:00 07/10/23 09:16 Temperature 103.2 F H Pulse Rate 79 79 Respiratory Rate 21 26 H Blood Pressure 133/77 133/77 Pulse Oximetry 96 96 Oxygen Delivery Method Nasal Cannula Nasal Cannula Oxygen Flow Rate 4 3 07/10/23 09:30 07/10/23 09:31 07/10/23 09:31 Temperature Pulse Rate 80 81 Respiratory Rate 28 H 30 H Blood Pressure 131/80 Pulse Oximetry 97 96 Oxygen Delivery Method Oxygen Flow Rate 07/10/23 09:47 07/10/23 09:52 07/10/23 10:00 Temperature 103.2 F H Pulse Rate 82 78 Respiratory Rate 26 H 27 H Blood Pressure Pulse Oximetry 94 Oxygen Delivery Method Nasal Cannula Oxygen Flow Rate 2 07/10/23 10:30 07/10/23 11:00 Temperature Pulse Rate 78 104 H Respiratory Rate 22 37 H Blood Pressure Pulse Oximetry 94 95 Oxygen Delivery Method Oxygen Flow Rate MDM - SOB/Dyspnea Lab Data 07/10/23 09:00 07/10/23 09:00 Labs: Lab Results 07/10/23 07/10/23 Range/Units 09:00 11:10 WBC 8.3 (4.5-11.0) X10^3/uL RBC 4.14 L (4.5-5.9) X10^6/uL Hgb 11.1 L (13.5-17.5) g/dL Hct 34.8 L (41-53) % MCV 84.0 (80-100) fL MCH 26.7 (26-34) PG MCHC 31.8 (30-36) % RDW 17.8 H (11.6-14.8) % Plt Count 192 (150-400) X10^3/uL Neut % (Auto) 74.6 (50-75) % Lymph % (Auto) 11.3 L (25-40) % [place] % (Auto) 13.4 (3-14) % Eos % (Auto) 0.1 L (2-4) % Baso % (Auto) 0.6 (0-2) % Neut # (Auto) 6200 (5400-7667) /uL Lymph # (Auto) 900 L (2685-3168) /uL [place] # (Auto) 1100 H (0-900) /uL Eos # (Auto) 0 (0-450) /uL Baso # (Auto) 0 (0-100) /uL Sodium 136 L (137-145) mmol/L Potassium 4.3 (3.4-5.1) mmol/L Chloride 98 (98-107) mmol/L Carbon Dioxide 32 (22-32) mmol/L BUN 18 (9-20) mg/dL Creatinine 0.83 (0.66-1.25) mg/dL Estimated GFR > 60 (>60) mL/min BUN/Creatinine Ratio 21.7 (6-22) Glucose 118 H (80-110) mg/dL Lactate 2.5 H 1.6 (0.7-2.1) mmol/L Calcium 9.1 (8.4-10.2) mg/dL Total Bilirubin 1.6 H (0.2-1.3) mg/dL AST 39 (17-59) IU/L ALT 20 (<50) IU/L Alkaline Phosphatase 108 (38-126) U/L Total Creatine Kinase 70 (55-170) U/L Troponin I 0.022 (0.01-0.034) ng/mL NT-Pro-B Natriuret Pep 1870 H (<450) pg/mL Total Protein 8.4 H (6.3-8.2) g/dL Albumin 4.8 (3.5-5.0) g/dL Globulin 3.6 (1.7-4.1) g/dL Albumin/Globulin Ratio 1.3 (1.0-2.8) Lipase 76 (23-300) U/L Procalcitonin 0.53 H (<0.5) ng/mL Chlamy pneumoniae PCR Not detected (Not Detect) Adenovirus (PCR) Not detected (Not Detect) B.parapertussis DNA PCR Not detected (Not Detecte) Coronavirus OC43 (PCR) Not detected (Not Detect) Coronavirus HKU1 (PCR) Not detected (Not Detect) Coronavirus 229E (PCR) Not detected (Not Detect) SARS-CoV-2 (PCR) Not detected (Not Detecte) Coronavirus NL63 (PCR) Not detected (Not Detect) Human Metapneumovir PCR Detected H (Not Detect) Influenza Type A (PCR) Not detected (Not Detect) Influenza Type B (PCR) Not detected (Not Detect) M. pneumoniae (PCR) Not detected (Not Detect) Parainfluenza 1 (PCR) Not detected (Not Detect) Parainfluenza 2 (PCR) Not detected (Not Detect) Parainfluenza 3 (PCR) Not detected (Not Detect) Parainfluenza 4 (PCR) Not detected (Not Detect) RSV (PCR) Not detected (Not Detect) Entero/Rhino (PCR) Not detected (Not Detect) Imaging Data Chest x-ray: Radiologist's Impression: Close Chest X-Ray (Signed) Alexandra Turner - 07/10/[address] (Signed) Lora Cisneros - 06/04/23 CT Lung (Signed) Pawan Prajapati - 03/06/23 Chest X-Ray (Signed) Mark Freitas - 12/07/21 Abdomen/Pelvis CT (Signed) Jony Rinaldi - 12/18/20 Foot X-Ray (Signed) Kimberlee Turner - 03/09/19 Chest/Abdomen/Pelvis CTA (Signed) Lara Lawrence - 12/15/17 Abdomen Ultrasound (Signed) Regina Mccormick - 12/15/17 Chest CTA (Signed) LedesmaJackivett - 12/08/17 Launch?Image [address] [address] XRay Report Signed Patient: Liborio Velásquez MR#: [id number] : 1945 Acct:[id number] Age/Sex: 77 / M Date of Service: 07/10/23 Loc: ED Accession Number: [id number] Procedure: XR chest 1V Ordering Provider: Radha Daigle D.O. PROCEDURE: XR CHEST 1V INDICATIONS: sob, cough, fever TECHNIQUE: One view of the chest was acquired. COMPARISON: [facility], CT, CT LUNG LOW DOSE SCREENING, 03/06/2023, 13:45. [facility], CT, CT CHEST W CON, 06/04/2023, 13:10. [facility], CR, XR CHEST 2V, 12/07/2021, 14:57. FINDINGS: Surgical changes and devices: There is a cardiac pacemaker in expected position. Lungs and pleura: Lungs are clear. No pleural effusions or pneumothorax. Mediastinum: Mediastinal contours appear normal. Heart size is normal. Bones and chest wall: No suspicious bony lesions. Overlying soft tissues appear unremarkable. IMPRESSION: No acute cardiopulmonary abnormality is seen. Dictated by: Alexandra Turner M.D. on 07/10/2023 at 10:17 Approved by: Alexandra Turner M.D. on 07/10/2023 at 10:18 ECG Data Attestation: I personally reviewed and interpreted this ECG as follows: Prior ECG tracings: available for review Interpretation: Paced rhythm rate of 79 VA 196 QRS of 180 QTC of 472. Patient patient did have occasional extra beat. Prior from 2018 shows paced rhythm as well. MDM Narrative Medical decision making narrative: 7-year-old with history of COPD but not requiring inhalers, cardiac history on Eliquis for AFib RVR had recent exposure to upper respiratory viral infections with increasing shortness of breath, productive yellow cough and febrile here in the department. Symptoms most likely consistent with pneumonia versus viral infection causing exacerbation of COPD. O2 was stopped after arrival and patient had +in the mid 90s. Did receive an additional albuterol as he still has some mild wheeze but he notes that felt much better after the 1st DuoNeb from EMS. Vitals show no tachycardia, patient is afebrile, no hypotension. No hypoxia on arrival. Patient had labs. White count 0.3 hemoglobin of 11, platelets of 192, lymphocytes are low monocytes elevated count. INR 1.2, someone 36 potassium 4 3 chloride 98 CO2 of 32 BUN 18 creatinine of 0.83 glucose is 118 with a lactate of 2.5 total bilirubin is 1.6 by AST ALT alk-phos normal range, troponin is 0.022 BNP is 18 70 with a procalcitonin positive. Respiratory panel is pending EKG shows atrial sensed ventricularly paced rhythm occasional PVC Chest x-ray is negative. Patient's symptoms seem most consistent with bacterial pneumonia with a positive procalcitonin patient was started on IV antibiotics. Patient is started on Rocephin azithromycin for community-acquired pneumonia. Patient received steroids, nebulizer treatment, Tylenol. Patient had some improvement but still feels short of breath. Received additional albuterol here in the department. He has no longer wheezy but still feels somewhat short of breath. Continues to be mildly tachypneic. He is requiring 2 L after some monitoring. Spoke with Dr. Salguero, accepts for admission. Discharge Plan Departure Patient Disposition: Admitted As Inpatient Clinical Impression: Acute hypoxic respiratory failure, Pneumonia Admit Date/Time: 07/10/23 11:10 Admit Provider: Edgard Salguero
[2023-07-10] MEDS: ALBUTEROL 2.5 MG/3 ML NEB (ADULT) INH ×2 (08:52→09:52)
--- NOTE | 2023-07-10 09:12 | RT ---
pt farideh neb tx well, neb given on room air, mild sob noted
[2023-07-10 09:22] LABS: Add Manual Diff / Slide Review NO; Basophils Absolute Auto 0 /uL (0-100); Basophils Percent Auto 0.6 % (0-2); Eosinophils Absolute Auto 0 /uL (0-450); Eosinophils Percent Auto 0.1 % (2-4); Hematocrit 34.8 % (41-53); Hemoglobin 11.1 g/dL (13.5-17.5); Lymphocytes Absolute Auto 900 /uL (1100-4500); Lymphocytes Percent Auto 11.3 % (25-40); Mean Corpuscular HGB Conc 31.8 % (30-36); Mean Corpuscular Hemoglobin 26.7 PG (26-34); Monocytes Absolute Auto 1100 /uL (0-900); Monocytes Percent Auto 13.4 % (3-14); Neutrophils Absolute Auto 6200 /uL (1500-7000); Neutrophils Percent Auto 74.6 % (50-75); Platelet Count 192 X10^3/uL (150-400); Red Blood Cell Count 4.14 X10^6/uL (4.5-5.9); Red Cell Distribution Width 17.8 % (11.6-14.8); White Blood Cell Count 8.3 X10^3/uL (4.5-11.0)
[2023-07-10 09:34] LABS: Lactate (Lactic Acid) 2.5 mmol/L (0.7-2.1)
[2023-07-10 09:35] LABS: Alanine Aminotransferase 20 IU/L (<50); Albumin 4.8 g/dL (3.5-5.0); Albumin Globulin Ratio 1.3 (1.0-2.8); Alkaline Phosphatase 108 U/L (38-126); Aspartate Aminotransferase 39 IU/L (17-59); BUN Creatinine Ratio 21.7 (6-22); Bilirubin Total 1.6 mg/dL (0.2-1.3); Blood Urea Nitrogen 18 mg/dL (9-20); Calcium 9.1 mg/dL (8.4-10.2); Carbon Dioxide 32 mmol/L (22-32); Chloride 98 mmol/L (98-107); Creatine Kinase 70 U/L (55-170); Estimated Glomerular Filt Rate > 60 mL/min (>60); Globulin 3.6 g/dL (1.7-4.1); Glucose 118 mg/dL (80-110); HEMOLYSIS < 15 (0-50); Lipase 76 U/L (23-300); Potassium 4.3 mmol/L (3.4-5.1); Sodium 136 mmol/L (137-145); Total Protein 8.4 g/dL (6.3-8.2)
[2023-07-10 09:47] LABS: NT-proBNP (BNP-Adult 18+) 1870 pg/mL (<450); Troponin I 0.022 ng/mL (0.01-0.034)
[2023-07-10] MEDS: methylPREDNISolone 125 MG/2 ML VIAL IV (09:47)
[2023-07-10] MEDS: ACETAMINOPHEN 325 MG TABLET 975 MG PO (09:47)
[2023-07-10 09:53] LABS: Procalcitonin 0.53 ng/mL (<0.5)
[2023-07-10 10:19] LABS: Adenovirus Not Detected (Not Detect); B. parapertussis Not Detected (Not Detecte); Bordetella pertussis Not Detected (Not Detect); Chlamydophila pneumoniae Not Detected (Not Detect); Coronavirus 229E Not Detected (Not Detect); Coronavirus HKU1 Not Detected (Not Detect); Coronavirus NL 63 Not Detected (Not Detect); Coronavirus OC43 Not Detected (Not Detect); Human Metapneumovirus Detected (Not Detect); Human Rhinovirus/Enterovirus Not Detected (Not Detect); Influenza A Not Detected (Not Detect); Influenza B Not Detected (Not Detect); Mycoplasma pneumoniae Not Detected (Not Detect); Parainfluenza Virus 1 Not Detected (Not Detect); Parainfluenza Virus 2 Not Detected (Not Detect); Parainfluenza Virus 3 Not Detected (Not Detect); Parainfluenza Virus 4 Not Detected (Not Detect); Respiratory Syncytial Virus Not Detected (Not Detect); SARS- CoV-2 Not Detected (Not Detecte)
--- NOTE | 2023-07-10 10:31 | RT ---
pt farideh neb tx well on 2lpm nc. Neb tx given via air. at bedside
[2023-07-10 10:53] LABS: Reflexed Lactate in 2 Hours Y
--- NOTE | 2023-07-10 11:28 | PM.HP.1 ---
History of Present Illness History of Present Illness Date Patient Seen: 07/10/23 Chief complaint: SOB, COPD Narrative: The patient presented to ED by ambulance today after discussion EMS. He was acutely dyspneic. The patient has had progressive dyspnea for the last week. He has a history of COPD and stopped smoking previously. He also has atrial fibrillation, hypertension, and dyslipidemia. He was given nebulizers EN route and in the emergency department was febrile. Chest x-ray is clear. His given empiric antibiotics for probable pneumonia and bronchodilators were continued. IV corticosteroids were also given. Respiratory PCR was positive for metapneumovirus. He is followed by Dr. Castillo of pulmonary. He has fairly severe COPD per his report. He is quit smoking in 2011. He has been ill with progressive shortness of breath for 1 week. His had a cold 1st. He was positive for metapneumovirus in the ED. His cough has been mostly dry. He does have a sore throat. He denies any chest pain or palpitations. No nausea, vomiting. He does have an intentional 30 lb weight loss over the last several months. He denies diarrhea or difficulty urinating. He uses BPAP or CPAP. He is full resuscitation, he is never really thought about this much in the past and we discussed in detail today. He is intubation for respiratory failure but only for a limited time such as 1 week for reversible possibilities. [facility] Medical History Obstructive sleep apnea Coronary artery disease AAA (abdominal aortic aneurysm) without rupture Atrial fibrillation Hyperlipidemia Hypertension Family History Father Loud snoring Diabetes mellitus Social History household members: spouse Smoking Status: Former smoker Tobacco: How many years used: 40 alcohol intake: current Meds Home Medications and Allergies Home Medications Medication Instructions Recorded Confirmed Type tiotropium bromide 18 mcg capsule 1 puff INH QDAY #0 ea 10/17/15 06/12/23 History with inhalation device (Spiriva with HandiHaler) aspirin 81 mg tablet,delayed 81 mg PO QDAY ##0 12/19/15 06/12/23 History release albuterol sulfate 90 mcg/actuation 1 puff inhalation PRN PRN 12/15/17 06/12/23 History aerosol inhaler Shortness Of Breath atorvastatin 40 mg tablet 40 mg PO QPM 12/15/17 06/12/23 History levothyroxine 175 mcg tablet 1 tab PO DAILY 12/15/17 06/12/23 History budesonide-formoterol HFA 160 2 puff inhalation BID 06/21/20 06/12/23 History mcg-4.5 mcg/actuation aerosol inhaler (Symbicort) furosemide 80 mg tablet 80 mg PO DAILY 06/21/20 06/12/23 History lisinopril 5 mg tablet 5 mg PO DAILY 06/21/20 06/12/23 History apixaban 5 mg tablet (Eliquis) 5 mg PO BID 02/19/23 06/12/23 History metoprolol tartrate 25 mg tablet 25 mg PO BID 02/19/23 06/12/23 History montelukast 10 mg tablet 10 mg PO DAILY #30 tabs 07/04/23 07/04/23 Rx metoprolol succinate 25 mg mg PO 07/10/23 History tablet,extended release 24 hr Allergies Allergy/AdvReac Type Severity Reaction Status Date / Time hydromorphone [From DILAUDID] AdvReac Mild PROJECTILE Verified 06/12/23 09:29 VOMITING Review of Systems Review of Systems Narrative: All else reviewed and otherwise unremarkable except as noted in the history and physical. Exam Vital Signs (past 8 hours): - 07/10/23 08:40 07/10/23 08:42 07/10/23 08:42 Temperature Pulse Rate 78 78 Respiratory Rate Blood Pressure 150/76 H Pulse Oximetry 86 L 95 Oxygen Delivery Method Room Air Nasal Cannula Oxygen Flow Rate 5 07/10/23 08:47 07/10/23 08:47 07/10/23 08:52 Temperature Pulse Rate 81 78 Respiratory Rate 31 H 28 H Blood Pressure 138/71 Pulse Oximetry 94 95 Oxygen Delivery Method Nasal Cannula Nasal Cannula Oxygen Flow Rate 4 2 07/10/23 09:00 07/10/23 09:00 07/10/23 09:16 Temperature 103.2 F H Pulse Rate 79 79 Respiratory Rate 21 26 H Blood Pressure 133/77 133/77 Pulse Oximetry 96 96 Oxygen Delivery Method Nasal Cannula Nasal Cannula Oxygen Flow Rate 4 3 07/10/23 09:47 07/10/23 09:52 Temperature 103.2 F H Pulse Rate 82 Respiratory Rate 26 H Blood Pressure Pulse Oximetry 94 Oxygen Delivery Method Nasal Cannula Oxygen Flow Rate 2 Oxygen Delivery Method Nasal Cannula Oxygen Flow Rate 2 Narrative Exam Narrative: NAD, alert and oriented, fluent speech, calm. 2 liters O2. Normocephalic skull, EOMI, anicteric sclera, symmetric pupils. Oropharynx unremarkable, no droop. Neck supple, midline trachea, no adenopathy. Lungs diminished with mild expiratory wheezing, normal rate and effort. Heart regular, no murmur gallop or rub. Abdomen is soft, non distended and non tender. Extremities are free of edema. Skin is free of rash or lesions. Joints are not swollen or deformed. Judgment appears to be normal. Objective Imaging Chest x-ray: Radiologist's impression: No acute cardiopulmonary abnormality is seen. Labs 07/10/23 09:00 07/10/23 09:00 Labs: Laboratory Results - last 24 hr 07/10/23 09:00 WBC 8.3 RBC 4.14 L Hgb 11.1 L Hct 34.8 L MCV 84.0 MCH 26.7 MCHC 31.8 RDW 17.8 H Plt Count 192 Neut % (Auto) 74.6 Lymph % (Auto) 11.3 L [place] % (Auto) 13.4 Eos % (Auto) 0.1 L Baso % (Auto) 0.6 Neut # (Auto) 6200 Lymph # (Auto) 900 L [place] # (Auto) 1100 H Eos # (Auto) 0 Baso # (Auto) 0 Sodium 136 L Potassium 4.3 Chloride 98 Carbon Dioxide 32 BUN 18 Creatinine 0.83 Estimated GFR > 60 BUN/Creatinine Ratio 21.7 Glucose 118 H Lactate 2.5 H Calcium 9.1 Total Bilirubin 1.6 H AST 39 ALT 20 Alkaline Phosphatase 108 Total Creatine Kinase 70 Troponin I 0.022 NT-Pro-B Natriuret Pep 1870 H Total Protein 8.4 H Albumin 4.8 Globulin 3.6 Albumin/Globulin Ratio 1.3 Lipase 76 Procalcitonin 0.53 H Assessment & Plan Assessment & Plan narrative: 1. Probable community-acquired pneumonia, present on admission and active. 2. Acute hypoxic respiratory failure, present on admission and active. 3. COPD exacerbation, present on admission and active. 4. Lactic acidosis, present on admission and active. 5. Permanent atrial fibrillation on anticoagulation, present on admission and active. 6. Obesity class 1 with BMI of 33, present on admission and active. 7. Hypothyroidism, present on admission and active. 8. Hyperlipidemia, present on admission and active. PLAN: -continue IV antibiotics ceftriaxone and azithromycin will be given orally. -continue corticosteroid 60 IV q.6 hours. -continue bronchodilators as needed and scheduled. -trend lactic acid. -continue anticoagulation. Full code, his is proxy decision maker. Estimated date of discharge is 07/11, he is admitted to inpatient status with an expectation of 2 midnights medical necessity to treat his illness.. Time Spent With Patient Time with patient: 30 to 49 minutes with 50% spent counseling/coordinating care Quality MIPS - Admit I confirm the patient?s Advance Care Plan is present, Code status is documented, Surrogate decision maker is in patient?s record [If Yes, STOP here]: Yes MIPS - Meds 'Current medications' to include all prescriptions, [id number] products, herbals, cannabis/cannabidiol products, and vitamin/mineral/dietary (nutritional) supplements. I have utilized all available resources to obtain, update, or review the patient?s current medications. [If Yes, STOP here]: Yes
[2023-07-10] MEDS: cefTRIAXone 2,000 MG in SODIUM CHLORIDE 0.9% 100 ML 200 MG IV (11:38)
[2023-07-10] MEDS: AZITHROMYCIN 500 MG in DEXTROSE 5% IN WATER 250 ML 250 MG IV (11:39)
[2023-07-10] MEDS: SODIUM CHLORIDE 0.9% 1,000 ML 100 ML IV ×2 (11:41→21:31)
[2023-07-10 11:49] LABS: Lactate 2HR (Lactic Acid Rflx) 1.6 mmol/L (0.7-2.1)
[2023-07-10] MEDS: methylPREDNISolone 125 MG/2 ML VIAL 60 MG IV ×3 (11:50→23:06)
[2023-07-10] MEDS: ALBUTEROL/IPRATROPIUM 3 ML AMPUL INH ×2 (13:20→22:14)
[2023-07-10] MEDS: BENZOCAINE/MENTHOL 1 LOZ PKT 1 EACH PO ×2 (17:34→19:56)
[2023-07-10] MEDS: BENZONATATE 100 MG CAPSULE PO ×2 (17:34→22:02)
[2023-07-10] MEDS: APIXABAN 5 MG TABLET PO (23:06)
[2023-07-10] MEDS: MONTELUKAST 10 MG TABLET PO (23:07)
[2023-07-10] MEDS: METOPROLOL ER 25 MG TABLET PO (23:07)
[2023-07-10] MEDS: ATORVASTATIN 20 MG TABLET 40 MG PO (23:07)
[2023-07-11] VITALS (14 sets, daily range): BP systolic 108–130; BP diastolic 59–79; PULSE 76–108; RESP 16–24; TEMP 36.2–36.6; O2SAT 95–99
[2023-07-11] MEDS: methylPREDNISolone 125 MG/2 ML VIAL 60 MG IV ×4 (06:02→23:41)
[2023-07-11] MEDS: BENZONATATE 100 MG CAPSULE PO ×2 (06:03→23:41)
[2023-07-11] MEDS: BENZOCAINE/MENTHOL 1 LOZ PKT 1 EACH PO (06:06)
[2023-07-11 06:22] LABS: Add Manual Diff / Slide Review NO; Basophils Absolute Auto 0 /uL (0-100); Basophils Percent Auto 0.3 % (0-2); Eosinophils Absolute Auto 0 /uL (0-450); Hematocrit 29.8 % (41-53); Hemoglobin 9.6 g/dL (13.5-17.5); Lymphocytes Absolute Auto 500 /uL (1100-4500); Lymphocytes Percent Auto 6.8 % (25-40); Mean Corpuscular HGB Conc 32.4 % (30-36); Mean Corpuscular Hemoglobin 26.9 PG (26-34); Mean Corpuscular Volume 83.2 fL (80-100); Monocytes Absolute Auto 200 /uL (0-900); Monocytes Percent Auto 2.5 % (3-14); Neutrophils Absolute Auto 6800 /uL (1500-7000); Neutrophils Percent Auto 90.4 % (50-75); Platelet Count 138 X10^3/uL (150-400); Red Blood Cell Count 3.58 X10^6/uL (4.5-5.9); Red Cell Distribution Width 17.2 % (11.6-14.8); White Blood Cell Count 7.5 X10^3/uL (4.5-11.0)
[2023-07-11 06:36] LABS: BUN Creatinine Ratio 28.4 (6-22); Blood Urea Nitrogen 23 mg/dL (9-20); Calcium 8.8 mg/dL (8.4-10.2); Carbon Dioxide 30 mmol/L (22-32); Chloride 96 mmol/L (98-107); Estimated Glomerular Filt Rate > 60 mL/min (>60); Glucose 150 mg/dL (80-110); HEMOLYSIS < 15 (0-50); Potassium 3.9 mmol/L (3.4-5.1); Sodium 133 mmol/L (137-145)
[2023-07-11] MEDS: SODIUM CHLORIDE 0.9% 1,000 ML 100 ML IV ×2 (07:22→21:37)
[2023-07-11] MEDS: cefTRIAXone 1,000 MG in SODIUM CHLORIDE 0.9% 100 ML 200 MG IV (08:35)
[2023-07-11] MEDS: APIXABAN 5 MG TABLET PO ×2 (08:36→21:37)
[2023-07-11] MEDS: AZITHROMYCIN 250 MG TABLET 500 MG PO (08:36)
[2023-07-11] MEDS: METOPROLOL ER 25 MG TABLET PO ×2 (08:36→21:35)
[2023-07-11] MEDS: lisinopriL 5 MG TABLET PO (10:27)
[2023-07-11] MEDS: LEVOTHYROXINE 75 MCG, LEVOTHYROXINE 100 MCG 175 MCG PO (10:27)
[2023-07-11] MEDS: ASPIRIN EC 81 MG TABLET PO (10:28)
[2023-07-11] MEDS: FUROSEMIDE 40 MG TABLET 80 MG PO (10:28)
[2023-07-11] MEDS: LIDOCAINE VISCOUS 2% 15 ML SOLUTION PO ×2 (12:43→21:43)
[2023-07-11] MEDS: CODEINE/GUAIFENESIN LIQUID 5ML UDC 10 ML PO ×2 (12:43→20:05)
[2023-07-11] MEDS: ALBUTEROL/IPRATROPIUM 3 ML AMPUL INH ×2 (13:42→20:24)
--- NOTE | 2023-07-11 14:18 | P.PN_ITS ---
Subjective Subjective Interval history: Patient mostly complaining of severe cough and some sore throat. Still on 2L NC. Coughing up yellow sputum but no green. Exam Vital Signs (past 8 hours): - 07/11/23 07:00 07/11/23 07:00 07/11/23 08:00 Temperature 97.1 F L Pulse Rate 83 Respiratory Rate 16 Blood Pressure 119/72 Pulse Oximetry 98 98 Oxygen Delivery Method Nasal Cannula Nasal Cannula Oxygen Flow Rate 2 07/11/23 08:36 07/11/23 10:27 07/11/23 12:49 Temperature Pulse Rate 83 83 85 Respiratory Rate Blood Pressure 119/72 119/72 118/67 Pulse Oximetry Oxygen Delivery Method Oxygen Flow Rate 07/11/23 13:42 Temperature Pulse Rate 88 Respiratory Rate 24 Blood Pressure Pulse Oximetry 98 Oxygen Delivery Method Nasal Cannula Oxygen Flow Rate 2 Oxygen Delivery Method Nasal Cannula Oxygen Flow Rate 2 Narrative Exam Narrative: NAD, alert and oriented, fluent speech, calm. 2 liters O2. Normocephalic skull, EOMI, anicteric sclera, symmetric pupils. Oropharynx unremarkable, no droop. Neck supple, midline trachea, no adenopathy. Lungs diminished with mild expiratory wheezing, normal rate and effort. Heart regular, no murmur gallop or rub. Abdomen is soft, non distended and non tender. Extremities are free of edema. Skin is free of rash or lesions. Joints are not swollen or deformed. Judgment appears to be normal. Objective Labs 07/11/23 06:08 07/11/23 06:08 Labs: Laboratory Results - last 24 hr 07/11/23 06:08 WBC 7.5 RBC 3.58 L Hgb 9.6 L Hct 29.8 L MCV 83.2 MCH 26.9 MCHC 32.4 RDW 17.2 H Plt Count 138 L Neut % (Auto) 90.4 H Lymph % (Auto) 6.8 L [place] % (Auto) 2.5 L Eos % (Auto) 0.0 L Baso % (Auto) 0.3 Neut # (Auto) 6800 Lymph # (Auto) 500 L [place] # (Auto) 200 Eos # (Auto) 0 Baso # (Auto) 0 Sodium 133 L Potassium 3.9 Chloride 96 L Carbon Dioxide 30 BUN 23 H Creatinine 0.81 Estimated GFR > 60 BUN/Creatinine Ratio 28.4 H Glucose 150 H Calcium 8.8 PFSH Medical History Obstructive sleep apnea Coronary artery disease AAA (abdominal aortic aneurysm) without rupture Atrial fibrillation Hyperlipidemia Hypertension Family History Father Loud snoring Diabetes mellitus Social History household members: spouse Smoking Status: Former smoker Tobacco: How many years used: 40 alcohol intake: current Assessment & Plan Assessment & Plan narrative: 1. Possible community-acquired pneumonia with metapneumovirus, present on admission and active. 2. Acute hypoxic respiratory failure, present on admission and active. 3. COPD exacerbation, present on admission and active. 4. Lactic acidosis, present on admission and active. 5. Permanent atrial fibrillation on anticoagulation, present on admission and active. 6. Obesity class 1 with BMI of 33, present on admission and active. 7. Hypothyroidism, present on admission and active. 8. Hyperlipidemia, present on admission and active. PLAN: -continue IV antibiotics ceftriaxone and azithromycin will be given orally. -continue corticosteroid 60 IV q.6 hours. -continue bronchodilators as needed and scheduled. -continue anticoagulation. -add PRN robitussin/codiene and viscous lidocaine for sore throat Full code, his is proxy decision maker. Dispo: Home in 1-2 days. Time Spent With Patient Time with patient: 30 to 49 minutes with 50% spent counseling/coordinating care Quality VTE Deep Vein Thrombosis/Pulmonary Embolism Present on Admission: No
[2023-07-11] MEDS: ATORVASTATIN 20 MG TABLET 40 MG PO (18:23)
[2023-07-11] MEDS: MONTELUKAST 10 MG TABLET PO (21:36)
[2023-07-12] VITALS (11 sets, daily range): BP systolic 117–131; BP diastolic 65–78; PULSE 63–97; RESP 16–20; TEMP 36.4–36.6; O2SAT 96–99
[2023-07-12] MEDS: CODEINE/GUAIFENESIN LIQUID 5ML UDC 10 ML PO ×4 (02:18→21:50)
[2023-07-12] MEDS: LEVOTHYROXINE 75 MCG, LEVOTHYROXINE 100 MCG 175 MCG PO (06:00)
[2023-07-12] MEDS: methylPREDNISolone 125 MG/2 ML VIAL 60 MG IV ×3 (06:01→18:01)
[2023-07-12 06:25] LABS: Add Manual Diff / Slide Review NO; Basophils Absolute Auto 0 /uL (0-100); Basophils Percent Auto 0.1 % (0-2); Eosinophils Absolute Auto 0 /uL (0-450); Hematocrit 31.5 % (41-53); Hemoglobin 10.1 g/dL (13.5-17.5); Lymphocytes Absolute Auto 500 /uL (1100-4500); Lymphocytes Percent Auto 3.6 % (25-40); Mean Corpuscular HGB Conc 31.9 % (30-36); Mean Corpuscular Hemoglobin 26.4 PG (26-34); Mean Corpuscular Volume 82.6 fL (80-100); Monocytes Absolute Auto 400 /uL (0-900); Neutrophils Absolute Auto 12600 /uL (1500-7000); Neutrophils Percent Auto 93.3 % (50-75); Platelet Count 163 X10^3/uL (150-400); Red Blood Cell Count 3.82 X10^6/uL (4.5-5.9); Red Cell Distribution Width 17.4 % (11.6-14.8); White Blood Cell Count 13.5 X10^3/uL (4.5-11.0)
[2023-07-12 06:37] LABS: BUN Creatinine Ratio 33.3 (6-22); Blood Urea Nitrogen 27 mg/dL (9-20); Calcium 9.1 mg/dL (8.4-10.2); Carbon Dioxide 28 mmol/L (22-32); Chloride 103 mmol/L (98-107); Estimated Glomerular Filt Rate > 60 mL/min (>60); Glucose 147 mg/dL (80-110); HEMOLYSIS < 15 (0-50); Potassium 4.1 mmol/L (3.4-5.1); Sodium 139 mmol/L (137-145)
[2023-07-12] MEDS: ALBUTEROL/IPRATROPIUM 3 ML AMPUL INH ×3 (07:43→19:44)
[2023-07-12 08:05] LABS: Acinetobacter calcoa-baumannii Not Detected (Not Detect); Bacteroides fragilis Not Detected (Not Detect); Candida albicans Not Detected (Not Detect); Candida auris Not Detected (Not Detect); Candida glabrata Not Detected (Not Detect); Candida krusei Not Detected (Not Detect); Candida parapsilosis Not Detected (Not Detect); Candida tropicalis Not Detected (Not Detect); Cryptococcus neoformans/gatti Not Detected (Not Detect); Enterobacter cloacae complex Not Detected (Not Detect); Enterobacterales Not Detected (Not Detect); Enterococcus faecalis Not Detected (Not Detect); Enterococcus faecium Not Detected (Not Detect); Haemophilus influenzae Not Detected (Not Detect); Klebsiella aerogenes Not Detected (Not Detect); Listeria monocytogenes Not Detected (Not Detect); Neisseria meningitidis Not Detected (Not Detect); Proteus species Not Detected (Not Detect); Pseudomonas aeruginosa Not Detected (Not Detect); Salmonella species Not Detected (Not Detect); Serratia marcescens Not Detected (Not Detect); Staphylococcus epidermidis Not Detected (Not Detect); Staphylococcus lugdunensis Not Detected (Not Detect); Staphylococcus species Not Detected (Not Detect); Stenotrophomonas maltophilia Not Detected (Not Detect); Streptococcus agalactiae (Gr B Not Detected (Not Detect); Streptococcus pneumonia Not Detected (Not Detect); Streptococcus pyogenes (Gr A) Not Detected (Not Detect); Streptococcus species Not Detected (Not Detect)
[2023-07-12] MEDS: cefTRIAXone 1,000 MG in SODIUM CHLORIDE 0.9% 100 ML 200 MG IV (08:33)
[2023-07-12] MEDS: BENZONATATE 100 MG CAPSULE PO (08:34)
[2023-07-12] MEDS: ASPIRIN EC 81 MG TABLET PO (08:34)
[2023-07-12] MEDS: APIXABAN 5 MG TABLET PO ×2 (08:34→21:44)
[2023-07-12] MEDS: SODIUM CHLORIDE 0.9% 1,000 ML 100 ML IV (08:34)
[2023-07-12] MEDS: FUROSEMIDE 40 MG TABLET 80 MG PO (08:34)
[2023-07-12] MEDS: LIDOCAINE VISCOUS 2% 15 ML SOLUTION PO ×2 (08:34→18:04)
[2023-07-12] MEDS: AZITHROMYCIN 250 MG TABLET 500 MG PO (08:35)
[2023-07-12] MEDS: lisinopriL 5 MG TABLET PO (08:39)
[2023-07-12] MEDS: METOPROLOL ER 25 MG TABLET PO ×2 (08:39→21:41)
[2023-07-12] MEDS: SODIUM CHLORIDE 0.9% FLUSH 10 ML IV ×2 (09:44→22:00)
--- NOTE | 2023-07-12 14:22 | PM.PN.1 ---
Subjective Subjective Interval history: Patient's cough improved some today with the robitussin-codeine. Still on 2L NC. Exam Vital Signs (past 8 hours): - 07/12/23 07:00 07/12/23 07:44 07/12/23 08:00 Temperature 97.8 F Pulse Rate 82 87 Respiratory Rate 18 16 Blood Pressure 127/65 Pulse Oximetry 96 96 Oxygen Delivery Method Nasal Cannula Nasal Cannula Oxygen Flow Rate 2 2 Fraction of Inspired Oxygen 28 07/12/23 08:39 07/12/23 08:39 07/12/23 12:54 Temperature Pulse Rate 87 82 90 Respiratory Rate 20 Blood Pressure 127/65 127/65 Pulse Oximetry 97 Oxygen Delivery Method Nasal Cannula Oxygen Flow Rate 2 Fraction of Inspired Oxygen 28 07/12/23 13:09 Temperature Pulse Rate 97 H Respiratory Rate Blood Pressure Pulse Oximetry Oxygen Delivery Method Oxygen Flow Rate Fraction of Inspired Oxygen Fraction of Inspired Oxygen 28 SaO2/FiO2 Ratio 346 Oxygen Delivery Method Nasal Cannula Oxygen Flow Rate 2 Narrative Exam Narrative: NAD, alert and oriented, fluent speech, calm. 2 liters O2. Normocephalic skull, EOMI, anicteric sclera, symmetric pupils. Oropharynx unremarkable, no droop. Neck supple, midline trachea, no adenopathy. Lungs diminished with mild expiratory wheezing, normal rate and effort. Heart regular, no murmur gallop or rub. Abdomen is soft, non distended and non tender. Extremities are free of edema. Skin is free of rash or lesions. Joints are not swollen or deformed. Judgment appears to be normal. Objective Labs 07/12/23 06:00 07/12/23 06:00 Labs: Laboratory Results - last 24 hr 07/11/23 07/12/23 08:53 06:00 WBC 13.5 H D RBC 3.82 L Hgb 10.1 L Hct 31.5 L MCV 82.6 MCH 26.4 MCHC 31.9 RDW 17.4 H Plt Count 163 Neut % (Auto) 93.3 H Lymph % (Auto) 3.6 L [place] % (Auto) 3.0 Eos % (Auto) 0.0 L Baso % (Auto) 0.1 Neut # (Auto) 02047 H Lymph # (Auto) 500 L [place] # (Auto) 400 Eos # (Auto) 0 Baso # (Auto) 0 Sodium 139 Potassium 4.1 Chloride 103 Carbon Dioxide 28 BUN 27 H Creatinine 0.81 Estimated GFR > 60 BUN/Creatinine Ratio 33.3 H Glucose 147 H Calcium 9.1 A.calcoaceticus-baumannii cmplx PCR Not detected Bacteroides fragilis Not detected Teresa albicans (PCR) Not detected Teresa auris (PCR) Not detected C. glabrata (PCR) Not detected C. krusei (PCR) Not detected C. parapsilosis (PCR) Not detected C. tropicalis (PCR) Not detected C. neoform/gattii (PCR) Not detected Enterobacterales (PCR) Not detected E. cloacae complex PCR Not detected Enterococc faecalis PCR Not detected Enterococc faecium PCR Not detected E. coli (PCR) Not detected H. influenzae (PCR) Not detected Klebsiella aerogenes (PCR) Not detected Klebsiella oxytoca PCR Not detected Klebsiella pneumoniae Not detected List. monocytogenes PCR Not detected N. meningitidis (PCR) Not detected Proteus species (PCR) Not detected Salmonella spp. (PCR) Not detected Serratia marcescens PCR Not detected Staphylococcus sp PCR Not detected Staph aureus (PCR) Not detected mecA/C & MREJ Resist Gene Not applicable mecA/C-Methicil Resis Gene Not applicable mcr-1 Colistin Res Gene PCR Not applicable Staph epidermidis (PCR) Not detected Staph lugdunensis PCR Not detected S. maltophilia (PCR) Not detected Streptococcus sp PCR Not detected Group A Strep (PCR) Not detected Strep agalactiae (PCR) Not detected Strep pneumoniae (PCR) Not detected P. aeruginosa (PCR) Not detected Ciera/B-Vanco Res Genes Not applicable blaIMP Car res Gene PCR Not applicable KPC-Carbap Res Gene PCR Not applicable blaNDM Car Res Gene PCR Not applicable OXA-48 Carbapenem Resis Gene (PCR) Not applicable blaVIM Car Res Gene PCR Not applicable CTX-M Gene Resistance (PCR) Not applicable [facility] Medical History Obstructive sleep apnea Coronary artery disease AAA (abdominal aortic aneurysm) without rupture Atrial fibrillation Hyperlipidemia Hypertension Family History Father Loud snoring Diabetes mellitus Social History household members: spouse Smoking Status: Former smoker Tobacco: How many years used: 40 alcohol intake: current Assessment & Plan Assessment & Plan narrative: 1. Possible community-acquired pneumonia with metapneumovirus, present on admission and active. 2. Acute hypoxic respiratory failure, present on admission and active. 3. COPD exacerbation, present on admission and active. 4. Lactic acidosis, present on admission and resolved. 5. Permanent atrial fibrillation on anticoagulation, present on admission and active. 6. Obesity class 1 with BMI of 33, present on admission and active. 7. Hypothyroidism, present on admission and active. 8. Hyperlipidemia, present on admission and active. PLAN: -continue IV antibiotics ceftriaxone and azithromycin will be given orally. -continue corticosteroid 60 IV q.6 hours. -continue bronchodilators as needed and scheduled. -continue anticoagulation. -continue PRN robitussin/codiene and viscous lidocaine for sore throat Full code, his is proxy decision maker. Dispo: Home likely on 07/12. Time Spent With Patient Time with patient: 30 to 49 minutes with 50% spent counseling/coordinating care Quality VTE Deep Vein Thrombosis/Pulmonary Embolism Present on Admission: No
--- NOTE | 2023-07-12 14:33 | CM.DANOTE ---
Initial DCP Assessment Visit Note Reviewed EMR and team rounds for pt's medical status and updates. Did not meet with pt f/f due to contact precautions and excessive coughing with viral illness, called his and left a message re: role of MANAGER IMAGE and the MANAGER IMAGE desk contact number for her to call should she have any questions/needs/concerns re: discharge planning and OP resource needs. Pt and spouse reside independently in their own home in [place]. His will plan to transport him back home once he's medically cleared for home d/c. Payor: Medicare PCP: Liliana Amin Pt is a 77 year-old M who presented to the ED via EMS last evening with c/o worsening shortness of breath over the last week. He was found to be acutely hypoxic in the ambulance, was given nebulizers and steroids while en route to the ED. He has a PMH of smoking, Afib, COPD, and hypertension. In the ED, his PCR was positive for metapneumonovirus, and was started on IV ABO's, steroids, and bronchodilators, then admitted to the floor for continued eval/tx. Pt dx includes community aquired pneumonia, COPD exacerbation, acute hypoxic respiratory failure. DCP will continue to monitor for any developing d/c recommendations in need of DCP assistance. Discharge Planning/Care Management Advanced directive, confirm from FAMILY Start: 07/10/23 17:20 Freq: Q24H Status: Complete Protocol: Document 07/10/23 17:20 CM (Rec: 07/10/23 17:21 CM [id number]) Advance Directive, confirm on record Time 17:21 Person contacted Pt Copy received Yes Copy received Yes Advanced directive available on record Yes CM Discharge Assessment Start: 07/12/23 14:29 Freq: Status: Active Protocol: Document 07/12/23 14:29 DPL (Rec: 07/12/23 14:32 DPL [id number]) Discharge Planning Assessment Assigned Glassware Maker Demonstrator MENDEL Julian Advance Directives? Yes Advance Directives on File Yes History Provided By Medical Record Expected Length of Stay 3 Has Patient been admitted in last 30 No days? Prior Living Arrangements House Household Members spouse Type of transporation used prior to Drives own vehicle admit Independent with ADL's Yes Is patient alert and oriented? Yes Caregiver for Another No Barriers to Discharge No Discharge Plan Home Transportation Arrangement Spouse can provide transport at d/c Referrals Initiated None needed Whiteboard Updated in Patient Room with No name and ext. # of Glassware Maker Demonstrator Comment Did not update whiteboard due to pt's active viral status/ coughing. Review Status In Process Please Provide Date Initial DC 07/12/23 Assessment Was Performed
[2023-07-12] MEDS: SIMETHICONE 80 MG TABLET PO (18:01)
[2023-07-12] MEDS: ATORVASTATIN 20 MG TABLET 40 MG PO (18:01)
[2023-07-12] MEDS: MONTELUKAST 10 MG TABLET PO (21:41)
[2023-07-13] VITALS (8 sets, daily range): BP systolic 124–147; BP diastolic 68–81; PULSE 79–91; RESP 16–18; TEMP 35.9–36.4; O2SAT 96–98
[2023-07-13] MEDS: methylPREDNISolone 125 MG/2 ML VIAL 60 MG IV ×3 (00:05→11:32)
[2023-07-13] MEDS: BENZONATATE 100 MG CAPSULE PO ×2 (03:20→08:36)
[2023-07-13] MEDS: CODEINE/GUAIFENESIN LIQUID 5ML UDC 10 ML PO (04:03)
[2023-07-13] MEDS: LEVOTHYROXINE 75 MCG, LEVOTHYROXINE 100 MCG 175 MCG PO (05:48)
[2023-07-13] MEDS: ALBUTEROL/IPRATROPIUM 3 ML AMPUL INH (06:20)
[2023-07-13] MEDS: cefTRIAXone 1,000 MG in SODIUM CHLORIDE 0.9% 100 ML 200 MG IV (08:35)
[2023-07-13] MEDS: FUROSEMIDE 40 MG TABLET 80 MG PO (08:36)
[2023-07-13] MEDS: APIXABAN 5 MG TABLET PO (08:36)
[2023-07-13] MEDS: ASPIRIN EC 81 MG TABLET PO (08:36)
[2023-07-13] MEDS: METOPROLOL ER 25 MG TABLET PO (08:36)
[2023-07-13] MEDS: lisinopriL 5 MG TABLET PO (08:37)
[2023-07-13] MEDS: SODIUM CHLORIDE 0.9% FLUSH 10 ML IV (08:38)
--- NOTE | 2023-07-13 12:18 | P.DS_ITS ---
History of Present Illness History of Present Illness Chief complaint: SOB, COPD Narrative: The patient presented to ED by ambulance today after discussion EMS. He was acutely dyspneic. The patient has had progressive dyspnea for the last week. He has a history of COPD and stopped smoking previously. He also has atrial fibrillation, hypertension, and dyslipidemia. He was given nebulizers EN route and in the emergency department was febrile. Chest x-ray is clear. His given empiric antibiotics for probable pneumonia and bronchodilators were continued. IV corticosteroids were also given. Respiratory PCR was positive for metapneumovirus. He is followed by Dr. Castillo of pulmonary. He has fairly severe COPD per his report. He is quit smoking in 2011. He has been ill with progressive shortness of breath for 1 week. His had a cold 1st. He was positive for metapneumovirus in the ED. His cough has been mostly dry. He does have a sore throat. He denies any chest pain or palpitations. No nausea, vomiting. He does have an intentional 30 lb weight loss over the last several months. He denies diarrhea or difficulty urinating. He uses BPAP or CPAP. He is full resuscitation, he is never really thought about this much in the past and we discussed in detail today. He is intubation for respiratory failure but only for a limited time such as 1 week for reversible possibilities. Discharge Providers Provider Date of admission: 07/10/23 11:10 Discharge Date: 07/13/23 Primary care physician: Liliana Stahl PA-C Consults: 07/10/23 11:27 Consult to Cardio/Pulmonary Rehabilitation Routine Comment: Physician Instructions: Evaluate and treat 07/13/23 09:08 Consult to Physical Therapy Evaluate & Treat Comment: Physician Instructions: Evaluate and Treat Discharge provider: Rene Bloom DO Summary Hospital Course Discharge Diagnosis: 1. Possible community-acquired pneumonia with metapneumovirus, present on admission and active. 2. Acute hypoxic respiratory failure, present on admission and active. 3. COPD exacerbation, present on admission and active. 4. Lactic acidosis, present on admission and resolved. 5. Permanent atrial fibrillation on anticoagulation, present on admission and active. 6. Obesity class 1 with BMI of 33, present on admission and active. 7. Hypothyroidism, present on admission and active. 8. Hyperlipidemia, present on admission and active. Hospital Course: Admitted for acute hypoxic resp failure and SOB. Found to have possible PNA, COPD exac and metapnuemovirus. Given IV abx, steroids, nebs and slowly improved. Required 2L with ambulation due to sats dropping to 86%. Patient already has home O2 and will start using it. Sent home on prednisone taper and augmentin to finish course. Exam Vital Signs (past 8 hours): - 07/13/23 06:07 07/13/23 06:20 07/13/23 07:00 Temperature 96.7 F L Pulse Rate 85 80 Respiratory Rate 18 18 Blood Pressure 137/81 Pulse Oximetry 97 98 Oxygen Delivery Method Nasal Cannula Room Air Oxygen Flow Rate 2 2 Fraction of Inspired Oxygen 28 07/13/23 08:00 07/13/23 08:36 07/13/23 08:37 Temperature 97.1 F L Pulse Rate 80 83 83 Respiratory Rate 16 Blood Pressure 147/80 H 145/80 H 145/80 H Pulse Oximetry 96 Oxygen Delivery Method Oxygen Flow Rate 0 Fraction of Inspired Oxygen 07/13/23 11:39 07/13/23 12:00 Temperature Pulse Rate 91 H Respiratory Rate 18 Blood Pressure Pulse Oximetry 96 Oxygen Delivery Method Oxygen Flow Rate 0 Fraction of Inspired Oxygen Fraction of Inspired Oxygen 28 SaO2/FiO2 Ratio 350 Oxygen Delivery Method Room Air Oxygen Flow Rate 0 Narrative Exam Narrative: NAD, alert and oriented, fluent speech, calm. 2 liters O2. Normocephalic skull, EOMI, anicteric sclera, symmetric pupils. Oropharynx unremarkable, no droop. Neck supple, midline trachea, no adenopathy. Lungs diminished with mild expiratory wheezing, normal rate and effort. Heart regular, no murmur gallop or rub. Abdomen is soft, non distended and non tender. Extremities are free of edema. Skin is free of rash or lesions. Joints are not swollen or deformed. Judgment appears to be normal. Objective Labs 07/12/23 06:00 07/12/23 06:00 [facility] Medical History Obstructive sleep apnea Coronary artery disease AAA (abdominal aortic aneurysm) without rupture Atrial fibrillation Hyperlipidemia Hypertension Family History Father Loud snoring Diabetes mellitus Social History household members: spouse Smoking Status: Former smoker Tobacco: How many years used: 40 alcohol intake: current Discharge Plan Discharge Plan Patient Disposition: Home Provider Discharge Comment: You were admitted for a COPD exacerbation due to metapneumovirus. You were given antibiotics just in case of bacterial infection as well as steroids. Please continue oral antibiotics and prednisone at home. Also use your home oxygen when getting up and exerting yourself. Discharge orders & Medications Prescriptions: New prednisone 20 mg tablet See Rx Instructions .ROUTE .COMPLEX Qty: 12 0RF Rx Instructions: 60 mg (3 pills) daily for 2 days, then 40 mg (2 pills) daily for 2 days, then 20mg (1 pill) daily for 2 days then stop amoxicillin-pot clavulanate 875-125 mg tablet 1 tab PO BID 4 Days Qty: 8 0RF Continued tiotropium bromide [Spiriva with HandiHaler] 18 MCG capsule, w/inhalation device 1 puff INH DAILY Qty: 0 aspirin 81 MG tablet,delayed release (DR/EC) 81 mg PO DAILY Qty: 0 atorvastatin 40 mg tablet 40 mg PO QPM levothyroxine 175 mcg tablet 1 tab PO DAILY@0600 albuterol sulfate 90 mcg/actuation HFA aerosol inhaler 1 puff Inhalation PRN PRN (Reason: Shortness Of Breath) furosemide 80 mg tablet 80 mg PO DAILY metoprolol succinate [Toprol XL] 25 mg tablet extended release 24 hr 25 mg PO BID montelukast 10 mg tablet 10 mg PO BEDTIME Eliquis 5 mg tablet 5 mg PO BID budesonide-formoterol [Symbicort] 160-4.5 mcg/actuation HFA aerosol inhaler 2 puff inhalation BID lisinopril 5 mg tablet 5 mg PO DAILY Follow up/Referrals: Reyna Castillo DO [Physician] - 2 Weeks Liliana Stalh PABaldomero [Primary Care Provider] - 1 Week Visit Report/Discharge Packet Instructions: Pneumonia-Adult, DI for Pneumonia -- Adult Stand Alone Forms: Patient Portal/API, Stroke Signs & Symptoms Discharge Data Primary Care Provider: Liliaan Stahl Quality VTE Deep Vein Thrombosis/Pulmonary Embolism Present on Admission: No
--- NOTE | 2023-07-13 12:22 | PT.IIE ---
Current Diagnoses Pneumonia, unspecified organism (07/10/23) Medical History (Last Reviewed 07/10/23 @ 11:29 by Edgard Salguero MD) AAA (abdominal aortic aneurysm) without rupture Atrial fibrillation Coronary artery disease Hyperlipidemia Hypertension Obstructive sleep apnea Physical Therapy Inpatient Evaluation/Re-Eval M1 PT/OT-IP Prior Functional Status Start: 07/13/23 09:32 Freq: NEEDED Status: Active Protocol: Document 07/13/23 11:47 MB (Rec: 07/13/23 12:22 MB [id number]) Medical Review Prior Functional Status Medical History Reviewed Yes Diet/Fluid Consistency Regular Communication WNLs Mobility and Gait I Activities of Daily Living and IADL's I, pt reports history of COPD and he knows what he can and what he can't do and he takes rests when he needs to Social History Household Members spouse Living Arrangements House Number of Floors (Floors) Two Floors Number of Stairs To Enter/Railing? 2-3 steps and no rail to enter and flight of steps and one rail when inside Home Environment High Toilet,Walk in Shower, Built-In Shower Seat Home Equipment Front Wheel Walker,Straight Cane,Hand Held Shower Employment Status Retired Additional Social History Comment Pt has a BiPap that he wears at night and a pulsed oxygen machine. He is a mouth breather and has a mask for BiPap at night M2 PT-IP Current Condition Start: 07/13/23 09:32 Freq: NEEDED Status: Active Protocol: Document 07/13/23 11:47 MB (Rec: 07/13/23 12:22 MB [id number]) Physical Therapy Current Condition Current Condition Evaluation Date 07/13/23 Treatment Diagnosis SOB, hypoxia, acute virus in setting of COPD M3 PT-IP Subjective Start: 07/13/23 09:32 Freq: NEEDED Status: Active Protocol: Document 07/13/23 11:47 MB (Rec: 07/13/23 12:22 MB [id number]) Subjective Physical Therapy Visit Type Type Initial Evaluation Visit Start Time 11:47 Visit Stop Time 12:10 Number of COMPUTER INSTALLATION ENGINEER Visits 0 Physical Therapy Visit Comments Patient Comments Pt states that he is ready to go home and he is adamant about this at end of PT treatment after hypoxia and 4/ 4 Dyspnea Scale. MD arrives and is aware. Therapy Pain Assessment Pain When Pain Assessed At Rest Pain Present Pain Present Denied Pain M4 PT-IP Mobility and Gait Start: 07/13/23 09:32 Freq: NEEDED Status: Active Protocol: Document 07/13/23 11:47 MB (Rec: 07/13/23 12:22 MB [id number]) PT-Transfer Assessment Sit to and From Stand Sit to and from Stand Independent,Standby Assistance ,1 Person Assistance,Use of Upper Extremities Equipment Transfer Assistive Device None,Gait Belt Orthotic/Prosthetic Devices or Brace: No Transfers Transfer Destination Chair Transfer Technique Ambulation Transfer Ability Level of Assist Independent,Standby Assistance Comments Mobility Comments Pt adamant about going home at end of two long walks in hallway and MD enters to speak with pt and pt needing to sit in chair d/t BRAGG and bed mobility not assessed Gait Assessment Gait Gait Assistance Required: Standby Assistance Distance (Feet) 100 Able to Maintain Weight Bearing Status Yes During Gait Assistive Devices Assistive Device Gait Belt Orthotic/Prosthetic Devices or Brace: No Gait Deviations General Gait Pattern Wide Based Gait Factors Limiting Gait Function Factors Limiting Gait Function Poor Balance,Poor Safety Awareness,Respiratory Distress Comments Gait Comments Pt must take standing rest breaks every 20-50 feet of gait d/t 4/4 Dyspnea Scale and O2 sats are dropping to 86% when he is dyspneic. Pt frustrated and occ cursing that he cannot walk further, I am doing the best that I can ! and PT con't to provide encouragement that he is doing well and he has virus on top of COPD as well as mouth breathing Stair Climbing Assessment Evaluation Level of Assist On Stairs Standby Assistance,Contact Guard Assistance,1 Person Assistance Devices Stair Climbing Assistive Devices Right Railing Technique/Endurance Stair Climbing Direction Ascend and Descend Stair Climbing Technique Step Over Step,Step to Step Number of Steps Climbed 3 Query Text: Stair Climbing Set # Repetitions (reps) 1 Comments Stair Climbing Comments Step over step ascend and step to step descend and long rest break at top of steps PT-Balance Assessment Sitting Balance and Reactions Static Sitting Balance Ability Good Dynamic Sitting Balance Ability Good Standing Balance and Reactions Static Standing Balance Ability Fair Dynamic Standing Balance Ability Fair Device Used Must grab onto hallway rail when dyspneic M5 PT-IP Objective Assessments Start: 07/13/23 09:32 Freq: NEEDED Status: Active Protocol: Document 07/13/23 11:47 MB (Rec: 07/13/23 12:22 MB [id number]) Orientation Orientation/Cognition Level of Alertness Alert Orientation Name,Place,Situation Language Function Ability No Deficits Noted Safety Awareness Decreased Safety Awareness Memory Description No Deficits Noted Gross Range of Motion Upper Extremity ROM Assessment Within Functional Limits Lower Extremity ROM Assessment Within Functional Limits Strength Upper Extremity Strength Assessment Within Functional Limits Lower Extremity Strength Assessment Within Functional Limits Other Assessments Other Other Assessments Checked O2 sats frequently and dyspnea scale and pt has 4/4, severe BRAGG frequently with gait without AD in hallway and requires standing rest breaks and he is agitated when he has to stop M6 PT-IP Treatment Start: 07/13/23 09:32 Freq: NEEDED Status: Active Protocol: Document 07/13/23 11:47 MB (Rec: 07/13/23 12:22 MB [id number]) Physical Therapy Treatment Education Education Provided Safety Other Treatments Other Treatment Performed Education in benefits of rest breaks with gait, working on nasal breathing when he can and that he may possibly need O2 at d/c given O2 desaturation with gait M7 PT-IP Assessment and Plan Start: 07/13/23 09:32 Freq: NEEDED Status: Active Protocol: Document 07/13/23 11:47 MB (Rec: 07/13/23 12:22 MB [id number]) PT Summary Assessment and Plan Potential Rehabilitation Potential Fair Status of Condition at Evaluation Unstable Summary Impairments Balance,Bed Mobility,Transfers ,Gait,Activity Tolerance Progress Towards Goals Slow Progress due to Activity Tolerance Assessment Summary Pt is a 77 y/o male presenting with good functional strength . He presents with imbalance with gait greater than 50' that appears to be related to BRAGG and his O2 sats are 86% when he presents with 4/4 dyspnea scale with gait. If he stays in the hospital, can try gait training with 4WR[employer] next date to see if this helps with energy conservation. Pt is agitated with situation with gait when he has to stop and he is adamant about going home. is aware. Goals Bed Mobility Goal Independent Transfer Goal Independent,Four Wheeled Walker Gait Goal Independent,Four Wheel Walker Gait Distance 100 Other Goals Pt will ascend and descend 3 steps with rail and mod I. Days to Meet Goals 5 Frequency of Treatment Frequency Of Treatment Once a Day Treatment Plan Physical Therapy Treatment Plan Bed Mobility Training,Transfer Training,Gait Training, Therapeutic Exercise,Balance Retraining,Discharge Planning, Hot or Cold Pack,Neuromuscular Re-ed Precautions Other Precautions Rest breaks, breathing, O2 desaturation, fall risk, virus and on droplet Weight Bearing Status Weight Bearing Status Weight Bear as Tolerated Recommendations To Nursing Amount of Assist Needed 1 Person Assist Discharge Recommendations PT Discharge Recommendations Home with 24/ Assist Available Transportation Needs at Discharge Private Vehicle
--- NOTE | 2023-07-13 13:20 | CM.DPC ---
DCP Discharge Home Per MD, pt worked with RT for home O2 eval as pt still SOB with exertion and now medically stable to discharge home today as pt very adamant he wants to discharge today and recommendation of HH. SW met bedside with pt and explained role and pt confirms he strongly wants to discharge home today and already called for his ride to come provide transport home. SW inquired about HH and pt declines any HH needs and states his preference is to d/c home and no needs at this time. Pt's friend arrived bedside with clothing and confirms she will transport pt home today and no concerns. SAVANNA updated RN and FLARE STITCHER who are ready to provide pt's discharge pwk and instructions. Plan: Patient to discharge home today via private vehicle and declines any further resources. MENDEL Doan
--- NOTE | 2023-08-11 01:38 | PC.NURSE ---
Pt was given 10 ml of guafinesen with codeine on July 12, 2023 at 2146.
== END 2023-07-13 13:00 | disposition home or self-care (01) | DRG 193 ==
LOC: ED 11:10 → AC 11:11
PROVIDERS: Admitting Provider Hospitalist; Emergency Provider Emergency Medicine; PCP Physician Assistant; Referring Provider Emergency Medicine; Visit Provider Hospitalist
DX: J18.9 Pneumonia, unspecified organism (principal); J96.01 Acute respiratory failure with hypoxia; J44.1 Chronic obstructive pulmonary disease with (acute) exacerbation; I48.21 Permanent atrial fibrillation; B97.81 Human metapneumovirus as the cause of diseases classified elsewhere; E03.9 Hypothyroidism, unspecified; E78.5 Hyperlipidemia, unspecified; I10 Essential (primary) hypertension; I25.10 Atherosclerotic heart disease of native coronary artery without angina pectoris; Z87.891 Personal history of nicotine dependence; Z79.01 Long term (current) use of anticoagulants
CPT/HCPCS: 36415; 71045; 80048; 80053; 82550; 83605; 83690; 83880; 84145; 84484; 85025; 87040; 87154; 87633; 93005; 94640; 94760; 94762; 96365; 96366; 96368; 96375; 97161; 97535; 99285; J0696; J2919; J7613

== ENCOUNTER → 2023-08-19 09:11 | Outpatient (CLI) | payer MEDICARE, OTHER, SELFPAY ==
[2023-02-04 10:24] VITALS: BMI 29.0
[2023-07-10 16:00] VITALS: BMI 33.1
--- NOTE | 2023-08-19 09:14 | DI.RAD.S_ITS ---
PROCEDURE: XR CHEST 2V INDICATIONS: LUMP IN CHEST TECHNIQUE: 2 views of the chest were acquired. COMPARISON: [facility], CR, XR CHEST 1V, 07/10/2023, 8:53. [facility], CR, XR CHEST 2V, 12/07/2021, 14:57. FINDINGS: Surgical changes and devices: Left chest wall generator with cardiac leads. Lungs and pleura: Lungs are clear. No pleural effusions or pneumothorax. Mediastinum: Mediastinal contours are normal. Heart size is normal. Bones and chest wall: No suspicious bony abnormalities. Soft tissues appear unremarkable. IMPRESSION: No acute cardiopulmonary abnormality is seen. Dictated by: Haroon Galeana M.D. on 08/19/2023 at 9:52 Approved by: Haroon Galeana M.D. on 08/19/2023 at 9:52
== END ==
PROVIDERS: PCP Physician Assistant; Referring Provider Physician Assistant; Visit Provider Physician Assistant
DX: R22.2 Localized swelling, mass and lump, trunk (principal)
CPT/HCPCS: 71046

== ENCOUNTER → 2023-11-05 15:13 | Outpatient (CLI) | payer MEDICARE, OTHER, SELFPAY ==
[2023-02-04 10:24] VITALS: BMI 29.0
[2023-07-10 16:00] VITALS: BMI 33.1
--- NOTE | 2023-11-05 15:14 | DI.US.S_ITS ---
PROCEDURE: US ABD AORTA ANEURYSM SCREEN INDICATIONS: POSSIBLE ANEURYSM TECHNIQUE: Real time scanning was performed of the aorta and iliac arteries, with image documentation. COMPARISON: [facility], CT, CT ABDOMEN PELVIS W CON, 12/18/2020, 23:45. FINDINGS: This study is limited by body habitus. Aorta: Proximal aortic diameter measures 2.5 cm. Mid-aorta measures 1.7 cm. Distal aortic diameter is 1.4 cm. Iliac arteries: Right common iliac artery measures 1.3 cm. Left common iliac artery measures 1.4 cm. IMPRESSION: Negative for aneurysm. Dictated by: Norm Leija M.D. on 11/05/2023 at 16:55 Approved by: Norm Leija M.D. on 11/05/2023 at 16:55
== END ==
PROVIDERS: PCP Physician Assistant; Referring Provider Surgery Vascular Surgery; Visit Provider Surgery Vascular Surgery
DX: I71.43 Infrarenal abdominal aortic aneurysm, without rupture (principal)
CPT/HCPCS: 76706

== ENCOUNTER → 2024-01-24 10:15 | Outpatient (CLI) | payer MEDICARE, OTHER, SELFPAY ==
[2023-02-04 10:24] VITALS: BMI 29.0
[2023-07-10 16:00] VITALS: BMI 33.1
--- NOTE | 2024-01-24 10:17 | DI.CT.S_ITS ---
PROCEDURE: CT ABDOMEN PELVIS W CON INDICATIONS: MICROCYTIC ANEMIA/FATIGUE/LOW FERRITIN TECHNIQUE: After the administration of intravenous contrast, axial sections acquired from the lung bases to the pubic symphysis. Coronal and sagittal reformats were performed. For radiation dose reduction, the following was used: automated exposure control, adjustment of mA and/or kV according to patient size. COMPARISON: [facility], CT, CT ABDOMEN PELVIS W CON, 12/18/2020, 23:45. FINDINGS: Image quality: Diagnostic Lower chest: Basal atelectasis, mild opacities, and bronchial wall thickening. No pleural effusions. Partially seen cardiac electrode leads. Liver: Irregular liver contour. Gallbladder and biliary system: Unremarkable, nondilated Pancreas: No ductal dilation Spleen: Splenomegaly. Similar peripherally calcified cystic lesion anteriorly about 3.8 cm. Adrenals: No discrete nodules Kidneys: Scattered cysts. No hydronephrosis or solid mass Vessels and lymph nodes: Aortic stent graft for abdominal aortic aneurysm. The excluded sac measures up to 4.5 cm, which is larger than prior. Stent graft extends to the common iliac arteries. Atherosclerotic calcifications. No pathologic lymph nodes by size criteria. Small varices. Bowel and peritoneum: No evidence of small bowel obstruction. Small ascites. Focal wall thickening is seen at the hepatic flexure of the colon. There is also wall thickening of the stomach. Body wall: Mild diffuse anasarca Pelvis: Mild perivesicular fluid and edema. Heterogeneous prostate enhancement, not well assessed on CT. Bones: No acute or suspicious osseous findings. There are degenerative changes. IMPRESSION: Cirrhosis and sequela of portal hypertension. Trace ascites. Aortic stent graft extending and common iliac arteries. The excluded aneurysm sac measuring up to 4.5 cm is slightly larger than prior imaging. Consider dedicated vascular follow-up. Bronchial wall thickening and basal pulmonary atelectasis and mild opacities. Consider future imaging surveillance to assess for resolution. Focal wall thickening at the hepatic flexure of the colon and stomach. This may be due to portal congestion, gastritis/colitis, versus underlying lesion. Consider endoscopic follow-up given reported history. Mild diffuse perivesicular fluid and edema, nonspecific. Correlate urinalysis. Other findings above. Dictated by: Florentino De Paz M.D. on 01/24/2024 at 17:23 Approved by: Florentino De Paz M.D. on 01/24/2024 at 17:29
== END ==
PROVIDERS: PCP Physician Assistant; Referring Provider Physician Assistant; Visit Provider Physician Assistant
DX: I71.40 Abdominal aortic aneurysm, without rupture, unspecified (principal); K76.6 Portal hypertension; K74.60 Unspecified cirrhosis of liver; J98.11 Atelectasis; R16.1 Splenomegaly, not elsewhere classified; I70.90 Unspecified atherosclerosis; R60.1 Generalized edema; N28.1 Cyst of kidney, acquired; D50.9 Iron deficiency anemia, unspecified; R53.83 Other fatigue; R63.4 Abnormal weight loss; R79.0 Abnormal level of blood mineral; Z95.828 Presence of other vascular implants and grafts
CPT/HCPCS: 74177; Q9967

== ENCOUNTER → 2024-11-10 09:35 | Outpatient (CLI) | payer MEDICARE, OTHER, SELFPAY ==
[2023-02-04 10:24] VITALS: BMI 29.0
[2023-07-10 16:00] VITALS: BMI 33.1
--- NOTE | 2024-11-10 09:55 | DI.CT.S_ITS ---
PROCEDURE: CT CHEST HIGH RESOLUTION INDICATIONS: COPD TECHNIQUE: Noncontrast 1.0 and 5.0 mm thick contiguous axial sections from the pulmonary apex to the posterior costophrenic angles, with 7 mm thick coronal and sagittal MIP reformats. 1 mm thick dynamic expiratory images acquired through the upper, mid, and lower lungs. 1.0 mm thick axial sections acquired from the ilia to the posterior costophrenic angles in the prone end-inspiration position. For radiation dose reduction, the following was used: automated exposure control, adjustment of mA and/or kV according to patient size. COMPARISON: [facility], CT, CT LOW DOSE LUNG CA SCREENING, 07/07/2021, 11:50. FINDINGS: Image quality: Diagnostic. Lungs and Pleura: Trachea is normal caliber. Moderate amount of dependent mucus is present and circumferential mucous at the ilia. No thickening of the posterior membrane. Mainstem bronchi and predominantly lower lobe central bronchi demonstrate slightly irregular circumferential wall thickening. Mild bilateral lower lobe peripheral bronchial wall thickening, left worse than right, and slight peripheral bronchiectasis. Scattered minor subpleural atelectatic changes in the costophrenic sulci bilaterally. Mild diffuse symmetric air trapping on dynamic imaging. Nonspecific pleural- based nodule in the caudal lingula measuring 8 mm, 3/293. No pleural effusions or pleural calcifications. Lower Neck: No enlarged lymph nodes. Thyroid: Not well seen. Axillae: No enlarged lymph nodes. Chest Wall: Left anterior subcutaneous pacemaker power pack. Bones: No suspicious bone lesion. Moderate anterior endplate osteophytosis throughout the spine. Thoracic Vessels: Ascending aorta is enlarged at 4.7 cm AP diameter, stable. Mild arch and descending aortic calcification. Borderline enlarged pulmonary arteries. Mediastinum and Yvette: No enlarged lymph nodes. Several small lymph nodes in the mediastinum are present. Heart: The heart is slightly enlarged. Coronary artery calcifications and/or stents. Pacemaker leads in place. No pericardial effusion. Esophagus: No wall thickening. No hiatal hernia. Upper Abdomen: Mildly nodular liver parenchyma. Peripherally calcified splenic cyst measuring 3.8 cm. Peripheral vascular calcification. IMPRESSION: Central airways abnormality, progressed since the prior exam, raising possibility of relapsing polychondritis or granulomatosis with polyangiitis. Amyloidosis is felt less likely. Chronic infectious or inflammatory bronchitis is likely given diagnosis of COPD. Nonspecific lingular nodule is new. This is most likely atelectatic change. Six-month follow-up recommended. Dictated by: Ariadna Le M.D. on 11/10/2024 at 10:58 Approved by: Ariadna Le M.D. on 11/10/2024 at 11:22
== END ==
PROVIDERS: PCP Physician Assistant; Referring Provider Internal Medicine; Visit Provider Internal Medicine
DX: J43.2 Centrilobular emphysema (principal); R91.1 Solitary pulmonary nodule; I77.89 Other specified disorders of arteries and arterioles; I70.0 Atherosclerosis of aorta; Z95.0 Presence of cardiac pacemaker
CPT/HCPCS: 71250